=== PATIENT | female | born 1970 | race Caucasian/White ===

== ENCOUNTER 2018-06-26 13:50 | Emergency (ER) | payer OTHER ==
[2018-06-26 14:16] VITALS: RESP 18; TEMP 98.6
[2018-06-26] MEDS ORDERED: IPRATROPIUM-ALBUTEROL 3 ML NEB INHALATION STA (15:03)
[2018-06-26] MEDS ORDERED: IBUPROFEN 600 MG STARTER PACK 4 TAB BTL PO STA (15:03)
[2018-06-26] MEDS ORDERED: ACETAMINOPHEN TAB 500 MG TAB PO STA (15:03)
--- NOTE | 2018-06-26 15:25 | XR ---
EXAMINATION TYPE: XR chest 2V DATE OF EXAM: 06/26/2018 COMPARISON: NONE HISTORY: Cough and congestion TECHNIQUE: Frontal and lateral views of the chest are obtained. FINDINGS: There is no focal air space opacity, pleural effusion, or pneumothorax seen. The cardiac silhouette size is within normal limits. The osseous structures are intact. IMPRESSION: No acute cardiopulmonary process.
--- NOTE | 2018-06-26 15:34 | ED ---
URI HPI - General Chief Complaint: Upper Respiratory Infection Stated Complaint: Congested Time Seen by Provider: 06/26/18 14:45 Source: patient, RN notes reviewed, old records reviewed Mode of arrival: ambulatory Limitations: no limitations - History of Present Illness Initial Comments: Dorothy is a 48-year-old female presents for shortness of one week of cough and congestion. She was a body aches. She states she's been using her nebulizer with albuterol but has had very little relief. Patient states that she's had complaints with back pain and generalized body aches. She states that her symptoms started on Wednesday. She's been laying in bed. She has had some episodes of vomiting. She denies any associated chest pain. Patient reports she did receive her flu vaccine. - Related Data Home Medications Medication Instructions Recorded Confirmed Levothyroxine Sodium [Synthroid] 125 mcg PO DAILY 01/10/16 06/26/18 Albuterol Nebulized [Ventolin 2.5 mg INHALATION Q6H PRN 06/26/18 06/26/18 Nebulized] Cholecalciferol (Vitamin D3) 2,000 unit PO DAILY 06/26/18 06/26/18 [Vitamin D3] Cyanocobalamin [Vitamin B-12] 500 mcg PO DAILY 06/26/18 06/26/18 Tylenol Cold Max Liquid 30 ml PO Q4H PRN 06/26/18 06/26/18 Previous Rx's Medication Instructions Recorded Ipratropium-Albuterol Nebulize 3 ml INHALATION TID #30 neb 06/26/18 [Duoneb 0.5 mg-3 mg/3 ml Soln] Aoaw-Zjnt-Vcj 6.25-5-10Mg/5Ml 5 ml PO Q6H 3 Days #60 ml 06/26/18 [Phenergan VC with Codeine] predniSONE 10 mg PO DAILY #15 tab 06/26/18 Allergies Allergy/AdvReac Type Severity Reaction Status Date / Time latex Allergy RED SKIN Verified 06/26/18 14:24 AND BLISTERS Penicillins Allergy Rash/Hives Verified 06/26/18 14:24 Review of Systems ROS Statement: Those systems with pertinent positive or pertinent negative responses have been documented in the HPI. ROS Other: All systems not noted in ROS Statement are negative. Past Medical History Past Medical History: Osteoarthritis (OA), Thyroid Disorder Additional Past Medical History / Comment(s): KIDNEY STONE History of Any Multi-Drug Resistant Organisms: None Reported Past Surgical History: Breast Surgery, Section, Tubal Ligation Additional Past Surgical History / Comment(s): LUNG BIOPSY Past Anesthesia/Blood Transfusion Reactions: No Reported Reaction Past Psychological History: No Psychological Hx Reported Smoking Status: Former smoker Past Alcohol Use History: None Reported Past Drug Use History: None Reported - Past Family History Mother Family Medical History: No Reported History General Exam - General Exam Comments Initial Comments: 48-year-old female. Alert and oriented. No significant distress. General: Well appearing, well nourished, in no distress. Oriented x 3, normal mood and affect . Ambulating without difficulty. Skin: Good turgor, no rash, unusual bruising or prominent lesions Hair: Normal texture and distribution. HEENT: Head: Normocephalic, atraumatic, no visible or palpable masses, depressions, or scaring. Eyes: Visual acuity intact, conjunctiva clear, sclera non-icteric, EOM intact, PERRL. Ears: EACs clear, TMs translucent & cone of light visualized. hearing intact. Nose: No external lesions, mucosa non-inflamed, septum and turbinates normal Mouth: Mucous membranes moist, no mucosal lesions. Teeth/Gums: No obvious caries or periodontal disease. No gingival inflammation or significant resorption. Pharynx: Mucosa non-inflamed, no tonsillar hypertrophy or exudate Neck: Supple, without lesions, bruits, or adenopathy, thyroid non-enlarged and non-tender Heart: No cardiomegaly or thrills; regular rate and rhythm, no murmur or gallop Lungs: Wheezing. Abdomen: Bowel sounds normal, no tenderness, organomegaly, masses, or hernia Extremities: No amputations or deformities, cyanosis, edema or varicosities, peripheral pulses intact Musculoskeletal: Normal gait and station. No misalignment, asymmetry, crepitation, defects, tenderness, masses, effusions, decreased range of motion, instability, atrophy or abnormal strength or tone in the head, neck, spine, ribs , pelvis or extremities. Neurologic: CN 2-12 normal. Sensation to pain, touch, and proprioception normal. DTRs normal in upper and lower extremities. No pathologic reflexes. Psychiatric: Oriented X3, intact recent and remote memory, judgment and insight , normal mood and affect. Limitations: no limitations Course Vital Signs 06/26/18 06/26/18 06/26/18 14:14 15:33 15:38 Temperature 98.6 F Pulse Rate 71 56 L 58 L Respiratory 18 Rate Blood Pressure 148/83 O2 Sat by Pulse 100 Oximetry Medical Decision Making - Medical Decision Making Junior female family history of asthma presents today with complaints of difficulty breathing, cough congestion and generalized body aches for one week. Patient clinically does appear well. She denies some wheezing was given a DuoNeb treatment. Her chest x-ray was normal. Patient is positive for influenza A. Patient will be discharged with close follow-up with primary care physician. Discharged with Zofran, and treatment steroids nebulizer and cough syrup. - Lab Data Lab Results 06/26/18 Range/Units 15:00 Influenza Type A RNA Detected H (Not Detectd) Influenza Type B (PCR) Not Detected (Not Detectd) - Radiology Data Radiology results: report reviewed Chest x-ray is negative for any acute critical me process. Disposition Clinical Impression: Influenza A Disposition: HOME SELF-CARE Condition: Good Instructions (If sedation given, give patient instructions): Influenza (ED) Additional Instructions: Is advised to rest, return to emergency department if any alarming signs or symptoms occur. Alternate Motrin and Tylenol. Patient to take the medication as prescribed. Prescriptions: Ipratropium-Albuterol Nebulize [Duoneb 0.5 mg-3 mg/3 ml Soln] 3 ml INHALATION TID #30 neb predniSONE 10 mg PO DAILY #15 tab Qauv-Jqwe-Mwz 6.25-5-10Mg/5Ml [Phenergan VC with Codeine] 5 ml PO Q6H 3 Days # 60 ml Is patient prescribed a controlled substance at d/c from ED?: No Referrals: [facility] [Primary Care Provider] - 1-2 days Time of Disposition: 15:44
[2018-06-26 16:12] VITALS: BP 137/92; PULSE 71
== END 2018-06-26 16:12 | disposition home or self-care (01) ==
LOC: EC 13:50
DX: J10.1 Influenza due to other identified influenza virus with other respiratory manifestations (principal); E07.9 Disorder of thyroid, unspecified; Z87.891 Personal history of nicotine dependence; Z88.0 Allergy status to penicillin; Z91.040 Latex allergy status; Z79.899 Other long term (current) drug therapy; Z82.5 Family history of asthma and other chronic lower respiratory diseases
CPT/HCPCS: 71046; 87502; 94640; 99284

== ENCOUNTER 2018-09-17 13:00 | Emergency (ER) | payer OTHER ==
[2018-09-17 13:03] VITALS: TEMP 98.1
[2018-09-17] MEDS ORDERED: SODIUM CHLORIDE 0.9% 1,000 ML IV STA (13:04)
[2018-09-17] MEDS ORDERED: SODIUM CHLORIDE 0.9% 500 ML 500 ML IV STA (13:04)
[2018-09-17] MEDS ORDERED: ONDANSETRON 4 MG/2 ML VIAL IVP STA (13:12)
[2018-09-17] MEDS ORDERED: KETOROLAC 30 MG/ML 1 ML VIAL IVP STA (13:12)
--- NOTE | 2018-09-17 13:44 | ED ---
Abdominal Pain HPI - General Chief Complaint: Abdominal Pain Stated Complaint: lower back pain Time Seen by Provider: 09/17/18 13:04 Source: patient, RN notes reviewed Mode of arrival: ambulatory Limitations: no limitations - History of Present Illness Initial Comments: 48-year-old female presents emergency Department chief complaint of right flank pain. Patient states has been waxing and waning but states his been more consistent recent. She does have a history kidney stones and feels somewhat. Patient denies any diarrhea, constipation, dysuria. Patient did admit that she had a very long period this month though she states she is perimenopausal. Patient denies any chance . She's had prior tubal ligation no other abdominal surgeries denies chest pain or shortness of breath. - Related Data Home Medications Medication Instructions Recorded Confirmed Levothyroxine Sodium [Synthroid] 125 mcg PO DAILY 01/10/16 06/26/18 Albuterol Nebulized [Ventolin 2.5 mg INHALATION Q6H PRN 06/26/18 06/26/18 Nebulized] Cholecalciferol (Vitamin D3) 2,000 unit PO DAILY 06/26/18 06/26/18 [Vitamin D3] Cyanocobalamin [Vitamin B-12] 500 mcg PO DAILY 06/26/18 06/26/18 Tylenol Cold Max Liquid 30 ml PO Q4H PRN 06/26/18 06/26/18 Previous Rx's Medication Instructions Recorded Ipratropium-Albuterol Nebulize 3 ml INHALATION TID #30 neb 06/26/18 [Duoneb 0.5 mg-3 mg/3 ml Soln] Gukq-Cays-Bcu 6.25-5-10Mg/5Ml 5 ml PO Q6H 3 Days #60 ml 06/26/18 [Phenergan VC with Codeine] predniSONE 10 mg PO DAILY #15 tab 06/26/18 Allergies Allergy/AdvReac Type Severity Reaction Status Date / Time latex Allergy RED SKIN Verified 09/17/18 13:03 AND BLISTERS Penicillins Allergy Rash/Hives Verified 09/17/18 13:03 Review of Systems ROS Statement: Those systems with pertinent positive or pertinent negative responses have been documented in the HPI. ROS Other: All systems not noted in ROS Statement are negative. Past Medical History Past Medical History: Osteoarthritis (OA), Thyroid Disorder Additional Past Medical History / Comment(s): KIDNEY STONE History of Any Multi-Drug Resistant Organisms: None Reported Past Surgical History: Breast Surgery, Section, Tubal Ligation Additional Past Surgical History / Comment(s): LUNG BIOPSY Past Anesthesia/Blood Transfusion Reactions: No Reported Reaction Past Psychological History: No Psychological Hx Reported Smoking Status: Former smoker Past Alcohol Use History: None Reported Past Drug Use History: None Reported - Past Family History Mother Family Medical History: No Reported History General Exam Limitations: no limitations General appearance: alert, in no apparent distress Head exam: Present: atraumatic, normocephalic, normal inspection Neck exam: Present: normal inspection. Absent: tenderness, meningismus, lymphadenopathy Respiratory exam: Present: normal lung sounds bilaterally. Absent: respiratory distress, wheezes, rales, rhonchi, stridor Cardiovascular Exam: Present: regular rate, normal rhythm, normal heart sounds. Absent: systolic murmur, diastolic murmur, rubs, gallop, clicks GI/Abdominal exam: Present: soft, normal bowel sounds. Absent: distended, tende rness, guarding, rebound, rigid Back exam: Present: CVA tenderness (L). Absent: CVA tenderness (R) Skin exam: Present: warm, dry, intact, normal color. Absent: rash Course Vital Signs 09/17/18 09/17/18 13:00 14:58 Temperature 98.1 F Pulse Rate 88 80 Respiratory 18 16 Rate Blood Pressure 146/90 136/81 O2 Sat by Pulse 98 99 Oximetry Medical Decision Making - Medical Decision Making 48-year-old female presented for flank pain abdominal pain. Patient CT shows evidence of moderate overall stool burden, possible enteritis versus colitis. Patient states will be discharged advised to take stool softener laxative and return for any worsening symptoms. - Lab Data Result diagrams: 09/17/18 13:54 09/17/18 13:54 Lab Results 09/17/18 09/17/18 09/17/18 Range/Units 13:54 13:54 13:54 WBC 5.9 (3.8-10.6) k/uL RBC 4.46 (3.80-5.40) m/uL Hgb 12.9 (11.4-16.0) gm/dL Hct 39.9 (34.0-46.0) % MCV 89.4 (80.0-100.0) fL MCH 29.0 (25.0-35.0) pg MCHC 32.5 (31.0-37.0) g/dL RDW 14.6 (11.5-15.5) % Plt Count 181 (150-450) k/uL Neutrophils % 63 % Lymphocytes % 29 % Monocytes % 3 % Eosinophils % 2 % Basophils % 0 % Neutrophils # 3.8 (1.3-7.7) k/uL Lymphocytes # 1.7 (1.0-4.8) k/uL Monocytes # 0.2 (0-1.0) k/uL Eosinophils # 0.1 (0-0.7) k/uL Basophils # 0.0 (0-0.2) k/uL Sodium 139 (137-145) mmol/L Potassium 4.3 (3.5-5.1) mmol/L Chloride 104 (98-107) mmol/L Carbon Dioxide 25 (22-30) mmol/L Anion Gap 10 mmol/L BUN 12 (7-17) mg/dL Creatinine 0.71 (0.52-1.04) mg/dL Est GFR (CKD-EPI)AfAm >90 (>60 ml/min/1.73 sqM) Est GFR (CKD-EPI)NonAf >90 (>60 ml/min/1.73 sqM) Glucose 92 (74-99) mg/dL Calcium 9.5 (8.4-10.2) mg/dL Total Bilirubin 0.5 (0.2-1.3) mg/dL AST 25 (14-36) U/L ALT 34 (9-52) U/L Alkaline Phosphatase 76 (38-126) U/L Total Protein 8.1 (6.3-8.2) g/dL Albumin 4.7 (3.5-5.0) g/dL Amylase 200 H (30-110) U/L Lipase 202 (23-300) U/L Urine Color Light Yellow Urine Appearance Clear (Clear) Urine pH 6.5 (5.0-8.0) Ur Specific Francis 1.011 (1.001-1.035) Urine Protein Negative (Negative) Urine Glucose (UA) Negative (Negative) Urine Ketones Negative (Negative) Urine Blood Trace H (Negative) Urine Nitrite Negative (Negative) Urine Bilirubin Negative (Negative) Urine Urobilinogen <2.0 (<2.0) mg/dL Ur Leukocyte Esterase Negative (Negative) Urine RBC 2 (0-5) /hpf Ur Squamous Epith Cells 1 (0-4) /hpf Urine Mucus Rare H (None) /hpf Disposition Clinical Impression: Abdominal pain, Constipation Disposition: HOME SELF-CARE Condition: Stable Instructions (If sedation given, give patient instructions): Abdominal Pain (ED) Additional Instructions: Please return to the Emergency Department if symptoms worsen or any other concerns. Is patient prescribed a controlled substance at d/c from ED?: No Referrals: [facility] [Primary Care Provider] - 1-2 days Time of Disposition: 15:16
--- NOTE | 2018-09-17 13:50 | XR ---
EXAMINATION TYPE: XR KUB DATE OF EXAM: 09/17/2018 CLINICAL DATA: 48-year-old female with abdominal pain, [facility] COMPARISON: 01/17/2016 FINDINGS: Lung bases are clear. No evidence for free intraperitoneal air. A few small bowel air-fluid levels in the left mid abdomen. No abnormal bowel dilatation. Scattered c olonic air is present with mild overall stool. No suspicious calcifications are identified. IMPRESSION: 1. Nonspecific, overall nonobstructive bowel gas pattern. No free air. 2. Some air-fluid levels within nondilated left mid abdominal small bowel loops could be transient or could represent a regional ileus or enteritis.
[2018-09-17 14:04] LABS: Basophils % (A) 0 %; Eosinophils # (A) 0.1 k/uL (0-0.7); Eosinophils % (A) 2 %; HCT 39.9 % (34.0-46.0); HGB 12.9 gm/dL (11.4-16.0); Lymphocytes # (A) 1.7 k/uL (1.0-4.8); Lymphocytes % (A) 29 %; MCHC 32.5 g/dL (31.0-37.0); MCV 89.4 fL (80.0-100.0); Mean Platelet Volume 9.7; Monocytes # (A) 0.2 k/uL (0-1.0); Monocytes % (A) 3 %; Neutrophils # (A) 3.8 k/uL (1.3-7.7); Neutrophils % (A) 63 %; Platelet Count 181 k/uL (150-450); RBC 4.46 m/uL (3.80-5.40); RDW 14.6 % (11.5-15.5); WBC 5.9 k/uL (3.8-10.6)
[2018-09-17 14:11] LABS: Appearance,Urine Clear (Clear); Bilirubin,Urine Negative (Negative); Blood,Urine Trace (Negative); Color,Urine Light Yellow; Glucose,Urine (UA) Negative (Negative); Ketones,Urine Negative (Negative); Leukocyte Esterase,Urine Negative (Negative); Mucus,Urine Rare /hpf; Nitrite,Urine Negative (Negative); PH, Urine 6.5 (5.0-8.0); Protein,Urine Negative (Negative); RBC,Urine 2 /hpf (0-5); Specific Gravity,Urine 1.011 (1.001-1.035); Squamous Epithelial Cell,Urine 1 /hpf (0-4); Urobilinogen,Urine <2.0 mg/dL (<2.0)
[2018-09-17 14:13] LABS: ALT 34 U/L (9-52); AST 25 U/L (14-36); Albumin 4.7 g/dL (3.5-5.0); Alkaline Phosphatase 76 U/L (38-126); Amylase 200 U/L (30-110); Anion Gap 10 mmol/L; Blood Urea Nitrogen 12 mg/dL (7-17); Calcium 9.5 mg/dL (8.4-10.2); Carbon Dioxide 25 mmol/L (22-30); Chloride 104 mmol/L (98-107); Glucose 92 mg/dL (74-99); Lipase 202 U/L (23-300); Potassium 4.3 mmol/L (3.5-5.1); Sodium 139 mmol/L (137-145); Total Bilirubin 0.5 mg/dL (0.2-1.3); Total Protein 8.1 g/dL (6.3-8.2)
[2018-09-17] MEDS ORDERED: MORPHINE SULFATE 2 MG/ML SYRINGE IVP ONE (14:28)
--- NOTE | 2018-09-17 15:13 | CT ---
EXAMINATION TYPE: CT abdomen pelvis w con DATE OF EXAM: 09/17/2018 COMPARISON: NONE HISTORY: 48-year-old female Right sided abdominal pain. TECHNIQUE: Contiguous axial scanning of the abdomen and pelvis following administration of 100 ml Iso josr 300 IV contrast. Delayed images through the kidneys and coronal/sagittal reconstructions perform ed. CT DLP: 820.8 mGycm Automated exposure control for dose reduction was used. FINDINGS: Heart normal size without pericardial effusion. Some strandy dependent atelectasis. No pleural effusi on. Prominent ingested debris distending the stomach. No focal liver lesion or biliary ductal dilatation. Portal venous system is patent. Gallbladder, adrenal glands, spleen, and pancreas appear within normal limits. 2.6 cm cyst upper pole left kidney. Prominent fluid filled small bowel loops in the mid to lower abdomen. No abnormal bowel dilatation. T here may be some mild wall thickening of the right lower quadrant small bowel, axial image 52. Normal appendix. Mild overall stone burden. Descending and sigmoid colonic diverticulosis. No pericolonic inflammatory change. No mesenteric or retroperitoneal lymphadenopathy. Uterus and left ovary are visualized. Right ovary not clearly delineated. No abnormal fluid collectio n in the pelvis or pelvic lymphadenopathy. Bones: No osseous destructive process. 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 If any chronic hip pain, cons ider outpatient orthopedic referral. IMPRESSION: 1. SOME PROMINENT FLUID-FILLED SMALL BOWEL LOOPS IN THE MID AND LOWER ABDOMEN AND POSSIBLE MILD WALL THICKENING OF RIGHT LOWER QUADRANT SMALL BOWEL LOOPS. CORRELATE FOR NONSPECIFIC ENTERITIS. 2. NORMAL APPENDIX. 3. DESCENDING AND SIGMOID COLONIC DIVERTICULOSIS. NO EVIDENCE FOR ACUTE DIVERTICULITIS. 4. BONY CHANGES AT THE HIPS MENTIONED ABOVE.
[2018-09-17 15:43] VITALS: BP 149/90; PULSE 58; RESP 18
== END 2018-09-17 15:37 | disposition home or self-care (01) ==
LOC: EC 13:00
DX: K59.00 Constipation, unspecified (principal); Z78.0 Asymptomatic menopausal state; E07.9 Disorder of thyroid, unspecified; M19.90 Unspecified osteoarthritis, unspecified site; Z87.891 Personal history of nicotine dependence; Z88.0 Allergy status to penicillin; Z91.040 Latex allergy status; Z79.890 Hormone replacement therapy; Z79.891 Long term (current) use of opiate analgesic; Z98.51 Tubal ligation status; Z87.442 Personal history of urinary calculi
CPT/HCPCS: 36415; 80053; 82150; 83690; 85025; 81001; 74018; 74177; 99284; 96374; 96375 ×2; 96361 ×2; J2405; J1885; J2270; Q9967

== ENCOUNTER 2018-10-02 12:55 | Emergency (ER) | payer OTHER ==
[2018-10-02] MEDS ORDERED: KETOROLAC 30 MG/ML 1 ML VIAL IVP STA (13:26)
[2018-10-02] MEDS ORDERED: SODIUM CHLORIDE 0.9% 1,000 ML IV ONE (13:26)
--- NOTE | 2018-10-02 13:29 | ED ---
Female Urogenital HPI - General Chief complaint: Vaginal Bleeding Stated complaint: Vaginal Bleeding Time Seen by Provider: 10/02/18 13:06 Source: patient, RN notes reviewed, old records reviewed Mode of arrival: wheelchair Limitations: no limitations - History of Present Illness Initial comments: Patient is a 48-year-old female presents emergency department today with concerns for abnormal vaginal bleeding. Patient states that for the past 2 months she's been having heavy vaginal bleeding. She states last week it seemed to lighten up. Today when she was getting ready for nondenominational she started noticed worsening heavy bleeding. Patient states that she was at nondenominational she started up and felt like an "her blood faucet turned on". Patient states that she had some significant clots and bright red blood and filter pad in 5 minutes. Patient states she is not on blood thinners. Patient states she does have an appointment with a consulting services project manager at the end of month. Patient reports that she's had no fevers chills or nausea and vomiting. She states that she's been having significant cramping pain for the past day. - Related Data Home Medications Medication Instructions Recorded Confirmed Levothyroxine Sodium [Synthroid] 125 mcg PO DAILY 01/10/16 06/26/18 Albuterol Nebulized [Ventolin 2.5 mg INHALATION Q6H PRN 06/26/18 06/26/18 Nebulized] Cholecalciferol (Vitamin D3) 2,000 unit PO DAILY 06/26/18 06/26/18 [Vitamin D3] Cyanocobalamin [Vitamin B-12] 500 mcg PO DAILY 06/26/18 06/26/18 Tylenol Cold Max Liquid 30 ml PO Q4H PRN 06/26/18 06/26/18 Previous Rx's Medication Instructions Recorded Ipratropium-Albuterol Nebulize 3 ml INHALATION TID #30 neb 06/26/18 [Duoneb 0.5 mg-3 mg/3 ml Soln] Fhkj-Bwow-Asi 6.25-5-10Mg/5Ml 5 ml PO Q6H 3 Days #60 ml 06/26/18 [Phenergan VC with Codeine] predniSONE 10 mg PO DAILY #15 tab 06/26/18 Ferrous Sulfate [Feosol] 325 mg PO BID #40 tab 10/02/18 Allergies Allergy/AdvReac Type Severity Reaction Status Date / Time latex Allergy RED SKIN Verified 10/02/18 13:03 AND BLISTERS Penicillins Allergy Rash/Hives Verified 10/02/18 13:03 Review of Systems ROS Statement: Those systems with pertinent positive or pertinent negative responses have been documented in the HPI. ROS Other: All systems not noted in ROS Statement are negative. Past Medical History Past Medical History: Osteoarthritis (OA), Thyroid Disorder Additional Past Medical History / Comment(s): KIDNEY STONE History of Any Multi-Drug Resistant Organisms: None Reported Past Surgical History: Breast Surgery, Section, Tubal Ligation Additional Past Surgical History / Comment(s): LUNG BIOPSY Past Anesthesia/Blood Transfusion Reactions: No Reported Reaction Past Psychological History: No Psychological Hx Reported Smoking Status: Former smoker Past Alcohol Use History: None Reported Past Drug Use History: None Reported - Past Family History Mother Family Medical History: No Reported History General Exam - General Exam Comments Initial Comments: 48-year-old female. Alert and oriented 3. No significant distress. Limitations: no limitations Head exam: Present: atraumatic, normocephalic, normal inspection Eye exam: Present: normal appearance, PERRL, EOMI. Absent: scleral icterus, conjunctival injection, periorbital swelling ENT exam: Present: normal exam, mucous membranes moist Neck exam: Present: normal inspection. Absent: tenderness, meningismus, lymphadenopathy Respiratory exam: Present: normal lung sounds bilaterally. Absent: respiratory distress, wheezes, rales, rhonchi, stridor Cardiovascular Exam: Present: regular rate, normal rhythm, normal heart sounds. Absent: systolic murmur, diastolic murmur, rubs, gallop, clicks GI/Abdominal exam: Present: soft, normal bowel sounds. Absent: distended, tenderness, guarding, rebound, rigid External exam: Present: normal external exam Speculum exam: Present: vaginal bleeding (Minimal clotting noted on pelvic exam, bright red blood noted. No adnexal or cervical motion tenderness.). Absent: normal speculum exam By manual exam: Present: normal by manual exam. Absent: cervical motion tenderness, adnexal mass Extremities exam: Present: normal inspection, full ROM, normal capillary refill. Absent: tenderness, pedal edema, joint swelling, calf tenderness Back exam: Present: normal inspection Neurological exam: Present: alert Skin exam: Present: warm, dry, intact, normal color. Absent: rash Course Vital Signs 0510/02/18 10/02/18 12:58 13:57 14:53 Temperature 98.8 F Pulse Rate 89 69 66 Respiratory 18 18 18 Rate Blood Pressure 171/104 160/101 159/97 O2 Sat by Pulse 99 100 98 Oximetry Medical Decision Making - Medical Decision Making Patient is a 48-year-old female presents emergency department today for abnormal vaginal bleeding. She does have some bleeding noted on pelvic exam, no significant clots. No cervical or adnexal tenderness. Patient's transvaginal ultrasound shows normal uterus. No fibroids. Unable to visualize ovaries ihsan aterally. Patient is hemoglobin is stable in that she's had 2 months of bleeding. I discussed starting the Patient on iron. Discussed that she needs to follow-up with her primary care doctor. Now the Patient on hormones and this could be best done by her GLYCERIN SUPERVISOR. She has an appointment at the enema. All questions answered return parameters were discussed. - Lab Data Result diagrams: 10/02/18 13:35 10/02/18 13:35 Lab Results 10/02/18 10/02/18 10/02/18 Range/Units 13:35 13:35 13:35 WBC 5.2 (3.8-10.6) k/uL RBC 4.21 (3.80-5.40) m/uL Hgb 12.4 (11.4-16.0) gm/dL Hct 37.7 (34.0-46.0) % MCV 89.4 (80.0-100.0) fL MCH 29.4 (25.0-35.0) pg MCHC 32.9 (31.0-37.0) g/dL RDW 13.8 (11.5-15.5) % Plt Count 140 L (150-450) k/uL Neutrophils % 66 % Lymphocytes % 26 % Monocytes % 4 % Eosinophils % 2 % Basophils % 0 % Neutrophils # 3.4 (1.3-7.7) k/uL Lymphocytes # 1.3 (1.0-4.8) k/uL Monocytes # 0.2 (0-1.0) k/uL Eosinophils # 0.1 (0-0.7) k/uL Basophils # 0.0 (0-0.2) k/uL PT 9.8 (9.0-12.0) sec INR 0.9 (<1.2) APTT 25.5 (22.0-30.0) sec Sodium 141 (137-145) mmol/L Potassium 4.1 (3.5-5.1) mmol/L Chloride 104 (98-107) mmol/L Carbon Dioxide 28 (22-30) mmol/L Anion Gap 9 mmol/L BUN 12 (7-17) mg/dL Creatinine 0.70 (0.52-1.04) mg/dL Est GFR (CKD-EPI)AfAm >90 (>60 ml/min/1.73 sqM) Est GFR (CKD-EPI)NonAf >90 (>60 ml/min/1.73 sqM) Glucose 82 (74-99) mg/dL Calcium 9.5 (8.4-10.2) mg/dL Total Bilirubin 0.6 (0.2-1.3) mg/dL AST 26 (14-36) U/L ALT 32 (9-52) U/L Alkaline Phosphatase 91 (38-126) U/L Total Protein 8.3 H (6.3-8.2) g/dL Albumin 4.8 (3.5-5.0) g/dL Urine Color Urine Appearance (Clear) Urine pH (5.0-8.0) Ur Specific Wall (1.001-1.035) Urine Protein (Negative) Urine Glucose (UA) (Negative) Urine Ketones (Negative) Urine Blood (Negative) Urine Nitrite (Negative) Urine Bilirubin (Negative) Urine Urobilinogen (<2.0) mg/dL Ur Leukocyte Esterase (Negative) Urine RBC (0-5) /hpf Urine WBC (0-5) /hpf Ur Squamous Epith Cells (0-4) /hpf Amorphous Sediment (None) /hpf Urine Mucus (None) /hpf Urine HCG, Qual (Not Detectd) Trichomonas Ag (Rapid) (Negative) Blood Type Blood Type Recheck Antibody Screen Spec Expiration Date 10/02/18 10/02/18 10/02/18 Range/Units 13:35 13:35 13:35 WBC (3.8-10.6) k/uL RBC (3.80-5.40) m/uL Hgb (11.4-16.0) gm/dL Hct (34.0-46.0) % MCV (80.0-100.0) fL MCH (25.0-35.0) pg MCHC (31.0-37.0) g/dL RDW (11.5-15.5) % Plt Count (150-450) k/uL Neutrophils % % Lymphocytes % % Monocytes % % Eosinophils % % Basophils % % Neutrophils # (1.3-7.7) k/uL Lymphocytes # (1.0-4.8) k/uL Monocytes # (0-1.0) k/uL Eosinophils # (0-0.7) k/uL Basophils # (0-0.2) k/uL PT (9.0-12.0) sec INR (<1.2) APTT (22.0-30.0) sec Sodium (137-145) mmol/L Potassium (3.5-5.1) mmol/L Chloride (98-107) mmol/L Carbon Dioxide (22-30) mmol/L Anion Gap mmol/L BUN (7-17) mg/dL Creatinine (0.52-1.04) mg/dL Est GFR (CKD-EPI)AfAm (>60 ml/min/1.73 sqM) Est GFR (CKD-EPI)NonAf (>60 ml/min/1.73 sqM) Glucose (74-99) mg/dL Calcium (8.4-10.2) mg/dL Total Bilirubin (0.2-1.3) mg/dL AST (14-36) U/L ALT (9-52) U/L Alkaline Phosphatase (38-126) U/L Total Protein (6.3-8.2) g/dL Albumin (3.5-5.0) g/dL Urine Color Urine Appearance (Clear) Urine pH (5.0-8.0) Ur Specific [place] (1.001-1.035) Urine Protein (Negative) Urine Glucose (UA) (Negative) Urine Ketones (Negative) Urine Blood (Negative) Urine Nitrite (Negative) Urine Bilirubin (Negative) Urine Urobilinogen (<2.0) mg/dL Ur Leukocyte Esterase (Negative) Urine RBC (0-5) /hpf Urine WBC (0-5) /hpf Ur Squamous Epith Cells (0-4) /hpf Amorphous Sediment (None) /hpf Urine Mucus (None) /hpf Urine HCG, Qual Not Detected (Not Detectd) Trichomonas Ag (Rapid) Negative (Negative) Blood Type O Positive Blood Type Recheck CABO Indicated Antibody Screen NEGATIVE Spec Expiration Date 10/05/2018233410/02/18 Range/Units 13:35 WBC (3.8-10.6) k/uL RBC (3.80-5.40) m/uL Hgb (11.4-16.0) gm/dL Hct (34.0-46.0) % MCV (80.0-100.0) fL MCH (25.0-35.0) pg MCHC (31.0-37.0) g/dL RDW (11.5-15.5) % Plt Count (150-450) k/uL Neutrophils % % Lymphocytes % % Monocytes % % Eosinophils % % Basophils % % Neutrophils # (1.3-7.7) k/uL Lymphocytes # (1.0-4.8) k/uL Monocytes # (0-1.0) k/uL Eosinophils # (0-0.7) k/uL Basophils # (0-0.2) k/uL PT (9.0-12.0) sec INR (<1.2) APTT (22.0-30.0) sec Sodium (137-145) mmol/L Potassium (3.5-5.1) mmol/L Chloride (98-107) mmol/L Carbon Dioxide (22-30) mmol/L Anion Gap mmol/L BUN (7-17) mg/dL Creatinine (0.52-1.04) mg/dL Est GFR (CKD-EPI)AfAm (>60 ml/min/1.73 sqM) Est GFR (CKD-EPI)NonAf (>60 ml/min/1.73 sqM) Glucose (74-99) mg/dL Calcium (8.4-10.2) mg/dL Total Bilirubin (0.2-1.3) mg/dL AST (14-36) U/L ALT (9-52) U/L Alkaline Phosphatase (38-126) U/L Total Protein (6.3-8.2) g/dL Albumin (3.5-5.0) g/dL Urine Color Light Yellow Urine Appearance Clear (Clear) Urine pH 6.5 (5.0-8.0) Ur Specific [place] 1.019 (1.001-1.035) Urine Protein Trace H (Negative) Urine Glucose (UA) Negative (Negative) Urine Ketones Negative (Negative) Urine Blood Moderate H (Negative) Urine Nitrite Negative (Negative) Urine Bilirubin Negative (Negative) Urine Urobilinogen <2.0 (<2.0) mg/dL Ur Leukocyte Esterase Negative (Negative) Urine RBC 81 H (0-5) /hpf Urine WBC 1 (0-5) /hpf Ur Squamous Epith Cells 2 (0-4) /hpf Amorphous Sediment Rare H (None) /hpf Urine Mucus Rare H (None) /hpf Urine HCG, Qual (Not Detectd) Trichomonas Ag (Rapid) (Negative) Blood Type Blood Type Recheck Antibody Screen Spec Expiration Date - Radiology Data Radiology results: report reviewed No endometrial thickening seen. No adnexal mass or free fluid. Unable to visualize the ovaries on the transvaginal and transabdominal attempts. Disposition Clinical Impression: Abnormal uterine bleeding Disposition: HOME SELF-CARE Condition: Good Instructions (If sedation given, give patient instructions): Dysfunctional Uterine Bleeding (ED) Additional Instructions: Patient advised to take iron supplements as directed. Have close follow-up with primary care physician. Patient should return to the emergency department if any alarming signs or symptoms occur. Follow-up with your GLYCERIN SUPERVISOR as directed. Prescriptions: Ferrous Sulfate [Feosol] 325 mg PO BID #40 tab Is patient prescribed a controlled substance at d/c from ED?: No Referrals: [facility] [Primary Care Provider] - 1-2 days Time of Disposition: 15:03
[2018-10-02 13:50] LABS: Basophils % (A) 0 %; Eosinophils # (A) 0.1 k/uL (0-0.7); Eosinophils % (A) 2 %; HCT 37.7 % (34.0-46.0); HGB 12.4 gm/dL (11.4-16.0); Lymphocytes # (A) 1.3 k/uL (1.0-4.8); Lymphocytes % (A) 26 %; MCH 29.4 pg (25.0-35.0); MCHC 32.9 g/dL (31.0-37.0); MCV 89.4 fL (80.0-100.0); Mean Platelet Volume 9.4; Monocytes # (A) 0.2 k/uL (0-1.0); Monocytes % (A) 4 %; Neutrophils # (A) 3.4 k/uL (1.3-7.7); Neutrophils % (A) 66 %; Platelet Count 140 k/uL (150-450); RBC 4.21 m/uL (3.80-5.40); RDW 13.8 % (11.5-15.5); WBC 5.2 k/uL (3.8-10.6)
[2018-10-02 13:58] LABS: ALT 32 U/L (9-52); AST 26 U/L (14-36); Albumin 4.8 g/dL (3.5-5.0); Alkaline Phosphatase 91 U/L (38-126); Anion Gap 9 mmol/L; Blood Urea Nitrogen 12 mg/dL (7-17); Calcium 9.5 mg/dL (8.4-10.2); Carbon Dioxide 28 mmol/L (22-30); Chloride 104 mmol/L (98-107); Glucose 82 mg/dL (74-99); Potassium 4.1 mmol/L (3.5-5.1); Sodium 141 mmol/L (137-145); Total Bilirubin 0.6 mg/dL (0.2-1.3); Total Protein 8.3 g/dL (6.3-8.2)
[2018-10-02 14:05] LABS: INR 0.9 (<1.2); Partial Thromboplastin Time 25.5 sec (22.0-30.0); Prothrombin Time 9.8 sec (9.0-12.0)
[2018-10-02 14:22] LABS: Amorphous Sediment,Urine Rare /hpf; Appearance,Urine Clear (Clear); Bilirubin,Urine Negative (Negative); Blood,Urine Moderate (Negative); Color,Urine Light Yellow; Glucose,Urine (UA) Negative (Negative); Ketones,Urine Negative (Negative); Leukocyte Esterase,Urine Negative (Negative); Mucus,Urine Rare /hpf; Nitrite,Urine Negative (Negative); PH, Urine 6.5 (5.0-8.0); Protein,Urine Trace (Negative); RBC,Urine 81 /hpf (0-5); Specific Gravity,Urine 1.019 (1.001-1.035); Squamous Epithelial Cell,Urine 2 /hpf (0-4); Urobilinogen,Urine <2.0 mg/dL (<2.0); WBC,Urine 1 /hpf (0-5)
--- NOTE | 2018-10-02 14:52 | US ---
EXAMINATION TYPE: US Transvaginal DATE OF EXAM: 10/02/2018 COMPARISON: CT CLINICAL HISTORY: Pain. Pt states abnormal, heavy vaginal bleeding x 2 months TECHNIQUE: Transvaginal (TV) and Transabdominal (TA) . Transabdominal sonographic images of the pelvis were acquired. Transvaginal sonographic images were medically necessary to better assess the following anatomy: Endo and ovaries EXAM MEASUREMENTS: Uterus: 9.8 x 4.5 x 5.4 cm Endometrial Stripe: 0.7 cm Unable to visualize ovaries on TV and TA attempts 1. Uterus: Anteverted Heterogeneous, Nabothian cyst in cervix 2. Endometrium: wnl 3. Right Ovary: Unable to visualize 4. Left Ovary: Unable to visualize 5. Bilateral Adnexa: wnl 6. Posterior cul-de-sac: wnl IMPRESSION: No endometrial thickening seen. No adnexal mass or free fluid. MTDD
[2018-10-02] MEDS ORDERED: traMADol 50 MG STARTER PACK 3 TAB BTL PO STA (15:18)
[2018-10-02 15:27] VITALS: BP 153/103; PULSE 72; RESP 14
[2018-10-02 15:46] VITALS: TEMP 98.2
[2018-10-04 12:43] LABS: N. gonorrhoeae,PCR Negative (Neg,Equiv); Neisseria Source Vagina
[2018-10-04 12:50] LABS: C. trachomatis,PCR Negative (Neg,Equiv); Chlamydia trachomatis Source Vagina
== END 2018-10-02 15:51 | disposition home or self-care (01) ==
LOC: EC 12:55
DX: N93.9 Abnormal uterine and vaginal bleeding, unspecified (principal); E07.9 Disorder of thyroid, unspecified; Z87.891 Personal history of nicotine dependence; Z79.890 Hormone replacement therapy; Z91.040 Latex allergy status; Z88.0 Allergy status to penicillin
CPT/HCPCS: 36415; 86900; 86901; 80053; 85025; 85610; 85730; 86850; 81001; 81025; 87808; 87491; 87591; 87070; 87205; 76856; 76830; 99285; 96374; 96361; J1885

== ENCOUNTER 2018-10-04 06:12 | Emergency (ER) | payer OTHER ==
[2018-10-04 06:32] VITALS: RESP 16
[2018-10-04 06:50] LABS: Amorphous Sediment,Urine Rare /hpf; Appearance,Urine Clear (Clear); Bilirubin,Urine Negative (Negative); Blood,Urine Moderate (Negative); Color,Urine Yellow; Glucose,Urine (UA) Negative (Negative); Ketones,Urine Negative (Negative); Leukocyte Esterase,Urine Negative (Negative); Mucus,Urine Occasional /hpf; Nitrite,Urine Negative (Negative); Protein,Urine Trace (Negative); RBC,Urine 3 /hpf (0-5); Specific Gravity,Urine 1.026 (1.001-1.035); Squamous Epithelial Cell,Urine 2 /hpf (0-4); Urobilinogen,Urine <2.0 mg/dL (<2.0); WBC,Urine 1 /hpf (0-5)
[2018-10-04 07:03] LABS: Basophils % (A) 0 %; Eosinophils # (A) 0.1 k/uL (0-0.7); Eosinophils % (A) 2 %; HCT 36.2 % (34.0-46.0); HGB 11.6 gm/dL (11.4-16.0); Lymphocytes # (A) 0.9 k/uL (1.0-4.8); Lymphocytes % (A) 19 %; MCH 29.2 pg (25.0-35.0); MCHC 32.1 g/dL (31.0-37.0); Mean Platelet Volume 9.6; Monocytes # (A) 0.2 k/uL (0-1.0); Monocytes % (A) 5 %; Neutrophils # (A) 3.4 k/uL (1.3-7.7); Neutrophils % (A) 71 %; Platelet Count 143 k/uL (150-450); RBC 3.98 m/uL (3.80-5.40); RDW 13.8 % (11.5-15.5); WBC 4.8 k/uL (3.8-10.6)
[2018-10-04 07:11] LABS: ALT 36 U/L (9-52); AST 27 U/L (14-36); Albumin 4.3 g/dL (3.5-5.0); Alkaline Phosphatase 70 U/L (38-126); Amylase 148 U/L (30-110); Anion Gap 8 mmol/L; Blood Urea Nitrogen 15 mg/dL (7-17); Carbon Dioxide 23 mmol/L (22-30); Chloride 111 mmol/L (98-107); Glucose 97 mg/dL (74-99); Lipase 128 U/L (23-300); Potassium 4.4 mmol/L (3.5-5.1); Sodium 142 mmol/L (137-145); Total Bilirubin 0.4 mg/dL (0.2-1.3); Total Protein 7.5 g/dL (6.3-8.2)
[2018-10-04] MEDS ORDERED: DICYCLOMINE 10 MG/ML 2 ML AMP IM STA (07:51)
[2018-10-04] MEDS ORDERED: ONDANSETRON 4 MG/2 ML VIAL IVP STA (07:51)
[2018-10-04] MEDS ORDERED: FAMOTIDINE 20 MG/2 ML VIAL IV STA (07:51)
--- NOTE | 2018-10-04 07:54 | ED ---
General Adult HPI - General Chief complaint: Abdominal Pain Stated complaint: Abd pain Time Seen by Provider: 10/04/18 07:04 Source: patient, RN notes reviewed Mode of arrival: ambulatory Limitations: no limitations - History of Present Illness Initial comments: Patient is a pleasant 48-year-old female presenting to the emergency Department with complaints of abdominal discomfort. Onset of symptoms was yesterday. Discomfort has been waxing and waning. Discomfort was worse after eating a salad last night. Discomfort is in the epigastric region. Patient does have associated nausea and decreased appetite. No vomiting. No diarrhea. Patient has less bowel movements than other people normally however no recent change for her. No fevers. Patient did have some discomfort several weeks ago however that was more on her flank when she was seen in the emergency department at that point. - Related Data Home Medications Medication Instructions Recorded Confirmed Levothyroxine Sodium [Synthroid] 125 mcg PO DAILY 01/10/16 10/04/18 Cholecalciferol [Vitamin D3 (25 5,000 unit PO DAILY 10/04/18 10/04/18 Mcg = 1000 Iu)] Previous Rx's Medication Instructions Recorded Dicyclomine [Bentyl] 20 mg PO QID #20 tablet 10/04/18 Allergies Allergy/AdvReac Type Severity Reaction Status Date / Time latex Allergy RED SKIN Verified 10/04/18 08:27 AND BLISTERS Penicillins Allergy Rash/Hives Verified 10/04/18 08:27 Review of Systems ROS Statement: Those systems with pertinent positive or pertinent negative responses have been documented in the HPI. ROS Other: All systems not noted in ROS Statement are negative. Constitutional: Denies: fever Eyes: Denies: eye pain ENT: Denies: ear pain Respiratory: Denies: cough Cardiovascular: Denies: chest pain Endocrine: Denies: fatigue Gastrointestinal: Reports: abdominal pain, nausea Genitourinary: Denies: dysuria Musculoskeletal: Denies: back pain Skin: Denies: rash Neurological: Denies: weakness Past Medical History Past Medical History: Osteoarthritis (OA), Thyroid Disorder Additional Past Medical History / Comment(s): KIDNEY STONE, History of Any Multi-Drug Resistant Organisms: None Reported Past Surgical History: Breast Surgery, Section, Tubal Ligation Additional Past Surgical History / Comment(s): LUNG BIOPSY, Past Anesthesia/Blood Transfusion Reactions: No Reported Reaction Past Psychological History: No Psychological Hx Reported Smoking Status: Former smoker Past Alcohol Use History: None Reported Past Drug Use History: None Reported - Past Family History Mother Family Medical History: No Reported History General Exam Limitations: no limitations General appearance: alert, in no apparent distress Head exam: Present: atraumatic Eye exam: Present: normal appearance, PERRL ENT exam: Present: normal oropharynx Neck exam: Present: normal inspection Respiratory exam: Present: normal lung sounds bilaterally Cardiovascular Exam: Present: regular rate, normal rhythm Expanded Peripheral pulses: 2+: Dorsalis Pedis (R), Dorsalis Pedis (L) GI/Abdominal exam: Present: soft, tenderness (Mild tenderness right upper quadrant and epigastric region), normal bowel sounds. Absent: distended, guarding, rebound, rigid, pulsatile mass Extremities exam: Present: normal inspection Back exam: Absent: CVA tenderness (R) Neurological exam: Present: alert Psychiatric exam: Present: normal affect, normal mood Skin exam: Present: normal color Course Vital Signs 10/04/18 10/04/18 06:26 12:00 Temperature 98.3 F 97.7 F Pulse Rate 76 63 Respiratory 16 16 Rate Blood Pressure 127/79 115/72 O2 Sat by Pulse 98 100 Oximetry - Reevaluation(s) Reevaluation #1: 10/04/18 09:21 Patient reevaluated without significant change in symptoms. Abdominal exam unchanged. Patient is receptive to computed tomography scan. 10/04/18 12:28 Patient again reevaluated and resting comfortably in bed. Patient and family updated on results and need for follow-up. Medical Decision Making - Lab Data Result diagrams: 10/04/18 06:48 10/04/18 06:48 Lab Results 10/04/18 10/04/18 10/04/18 Range/Units 06:33 06:48 06:48 WBC 4.8 (3.8-10.6) k/uL RBC 3.98 (3.80-5.40) m/uL Hgb 11.6 (11.4-16.0) gm/dL Hct 36.2 (34.0-46.0) % MCV 91.0 (80.0-100.0) fL MCH 29.2 (25.0-35.0) pg MCHC 32.1 (31.0-37.0) g/dL RDW 13.8 (11.5-15.5) % Plt Count 143 L (150-450) k/uL Neutrophils % 71 % Lymphocytes % 19 % Monocytes % 5 % Eosinophils % 2 % Basophils % 0 % Neutrophils # 3.4 (1.3-7.7) k/uL Lymphocytes # 0.9 L (1.0-4.8) k/uL Monocytes # 0.2 (0-1.0) k/uL Eosinophils # 0.1 (0-0.7) k/uL Basophils # 0.0 (0-0.2) k/uL Sodium 142 (137-145) mmol/L Potassium 4.4 (3.5-5.1) mmol/L Chloride 111 H (98-107) mmol/L Carbon Dioxide 23 (22-30) mmol/L Anion Gap 8 mmol/L BUN 15 (7-17) mg/dL Creatinine 0.71 (0.52-1.04) mg/dL Est GFR (CKD-EPI)AfAm >90 (>60 ml/min/1.73 sqM) Est GFR (CKD-EPI)NonAf >90 (>60 ml/min/1.73 sqM) Glucose 97 (74-99) mg/dL Calcium 9.0 (8.4-10.2) mg/dL Total Bilirubin 0.4 (0.2-1.3) mg/dL AST 27 (14-36) U/L ALT 36 (9-52) U/L Alkaline Phosphatase 70 (38-126) U/L Total Protein 7.5 (6.3-8.2) g/dL Albumin 4.3 (3.5-5.0) g/dL Amylase 148 H (30-110) U/L Lipase 128 (23-300) U/L Urine Color Yellow Urine Appearance Clear (Clear) Urine pH 7.0 (5.0-8.0) Ur Specific [place] 1.026 (1.001-1.035) Urine Protein Trace H (Negative) Urine Glucose (UA) Negative (Negative) Urine Ketones Negative (Negative) Urine Blood Moderate H (Negative) Urine Nitrite Negative (Negative) Urine Bilirubin Negative (Negative) Urine Urobilinogen <2.0 (<2.0) mg/dL Ur Leukocyte Esterase Negative (Negative) Urine RBC 3 (0-5) /hpf Urine WBC 1 (0-5) /hpf Ur Squamous Epith Cells 2 (0-4) /hpf Amorphous Sediment Rare H (None) /hpf Urine Mucus Occasional H (None) /hpf - Radiology Data Radiology results: report reviewed (Ultrasound reveals no acute process. The scan of the abdomen and pelvis shows fluid-filled small bowel loops, correlate for enteritis. Incidental soft tissue nodule in. Coccygeal region, recommend follow-up CT.), image reviewed (X-ray shows mild to moderate stool reported. No obstruction.) Disposition Clinical Impression: Abdominal pain Disposition: HOME SELF-CARE Condition: Stable Instructions (If sedation given, give patient instructions): Abdominal Pain (ED) Additional Instructions: Please follow-up with primary care physician in the next 2 for recheck. Symptoms continue consider GI evaluation. He will need to have repeat computed tomography scan done within the next 6 months to evaluate nodule. Return for fevers, increased pain, worsening or changing symptoms or other concerns. Prescriptions: Dicyclomine [Bentyl] 20 mg PO QID #20 tablet Is patient prescribed a controlled substance at d/c from ED?: No Referrals: [facility] [Primary Care Provider] - 1-2 days Roxi Sanderson MD [STAFF PHYSICIAN] - 1-2 days Time of Disposition: 12:29
--- NOTE | 2018-10-04 08:17 | XR ---
EXAMINATION TYPE: XR KUB DATE OF EXAM: 10/04/2018 CLINICAL DATA: 48-year-old female with abdominal pain, H COMPARISON: 09/17/2018 FINDINGS: Lung bases are clear. No evidence for free intraperitoneal air. No dilated small bowel or air-fluid levels. Scattered air and stool seen throughout the colon extendi ng distally into the rectum. [id number] stool burden. No suspicious calcifications identified. IMPRESSION: Mild to moderate stool burden. No evidence of bowel obstruction or free intraperitoneal air.
--- NOTE | 2018-10-04 08:56 | US ---
EXAMINATION TYPE: US gallbladder DATE OF EXAM: 10/04/2018 COMPARISON: NONE CLINICAL HISTORY: 48-year-old female Pain. Abdominal pain and nausea for 3 days TECHNIQUE: Multiple sonographic images of the right upper quadrant were obtained. FINDINGS: EXAM MEASUREMENTS: Liver Length: 13.7 cm Gallbladder Wall: 0.2 cm CBD: 0.3 cm Right Kidney: 10.9 x 4.4 x 3.9 cm [employer] NOTES: *Technical limitations due to large amount of overlying bowel content Pancreas: Tail obscured by overlying bowel gas Liver: appears wnl Gallbladder: no evidence of stones Evidence for sonographic Andrew's sign: no CBD: appears wnl Right Kidney: no evidence of hydronephrosis IMPRESSION: Suboptimal visualization of the pancreatic tail. Otherwise, unremarkable sonographic examination of t he right upper quadrant.
[2018-10-04] MEDS ORDERED: HYDROmorphone 1 MG/ML 1 ML SYRINGE IVP STA (09:21)
--- NOTE | 2018-10-04 10:15 | CT ---
EXAMINATION TYPE: CT abdomen pelvis w con DATE OF EXAM: 10/04/2018 COMPARISON: 09/17/2018 HISTORY: 48-year-old female with mid Abdominal pain TECHNIQUE: Contiguous axial scanning of the abdomen and pelvis following administration of 100 ml Iso josr 300 IV contrast. Delayed images through the kidneys and coronal/sagittal reconstructions perform ed. CT DLP: 792.4 mGycm Automated exposure control for dose reduction was used. FINDINGS: Heart upper limits of normal in size without pericardial effusion. Strandy atelectasis of the lower l ungs without pleural effusion. No focal liver lesion or biliary ductal dilatation. Portal venous system is patent. Gallbladder, adrenal glands, spleen, and pancreas appear within normal limits. 1.2 cm parapelvic cyst mid right kidney. 4 mm nonobstructive calculus upper to mid pole left kidney a s well as a 2.6 cm upper pole cyst. No dilated small bowel, free fluid, or free air. Some prominent fluid-filled small bowel loops are pr esent in the mid and lower abdomen. This seems to be very mild mesenteric haziness in this region. F or example, refer to axial image 43, 49, 50, and 53. Normal appendix. No mesenteric or retroperitoneal lymphadenopathy seen. [id number] stool burden. Left hemicolonic diverticulosis, greatest in the sigmoid colon. No per icolonic inflammatory change seen. Bladder nondistended. Uterus anteverted. Both ovaries are visualized. No abnormal fluid collection in the pelvis are pelvic lymphadenopathy. Bones: Mild degenerative change at the hips. No osseous destructive process. There is a nodular soft tissue density in the precoccygeal region measuring 1.7 cm, unchanged from 09/17/2018. IMPRESSION: 1. PROMINENT FLUID-FILLED SMALL BOWEL LOOPS IN THE MID AND LOWER ABDOMEN. THERE MAY BE A FEW SCATTERE D AREAS OF MILD ASSOCIATED MESENTERIC INFLAMMATION. CORRELATE FOR INFECTIOUS OR INFLAMMATORY ENTERITI S. 2. LEFT-SIDED CLONIC DIVERTICULOSIS WITHOUT EVIDENCE FOR ACUTE DIVERTICULITIS. NORMAL APPENDIX. 3. 4 MM NONOBSTRUCTIVE LEFT RENAL CALCULUS. 4. INCIDENTAL 1.7 CM SOFT TISSUE NODULE IN THE PRECOCCYGEAL REGION. THIS IS STABLE FOR APPROXIMATELY 2 MONTHS. NERVE SHEATH TUMOR OR MESENCHYMAL TUMOR ARE POSSIBLE. DUPLICATION CYST, HAMARTOMA, AND EPID ERMOID CYSTS ARE SOME ADDITIONAL DIFFERENTIAL CONSIDERATIONS. SIX-MONTH FOLLOW-UP CT TO REASSESS.
[2018-10-04 12:02] VITALS: BP 115/72; PULSE 63; TEMP 97.7
== END 2018-10-04 13:15 | disposition home or self-care (01) ==
LOC: EC 06:12
DX: R10.13 Epigastric pain (principal); M79.89 Other specified soft tissue disorders; R11.0 Nausea; R63.8 Other symptoms and signs concerning food and fluid intake; E07.9 Disorder of thyroid, unspecified; Z87.891 Personal history of nicotine dependence; Z88.0 Allergy status to penicillin; Z91.040 Latex allergy status; Z79.890 Hormone replacement therapy; Z79.899 Other long term (current) drug therapy
CPT/HCPCS: 36415; 80053; 82150; 83690; 85025; 81001; 74018; 76705; 74177; 99284; 96374; 96375 ×2; 96372; J0500; J2405; J1170; Q9967

== ENCOUNTER → 2019-02-13 | Outpatient (CLI) | payer OTHER ==
[2019-02-13 11:23] LABS: Basophils # (A) 0.1 k/uL (0-0.2); Basophils % (A) 1 %; Eosinophils # (A) 0.1 k/uL (0-0.7); Eosinophils % (A) 1 %; HCT 39.5 % (34.0-46.0); HGB 12.7 gm/dL (11.4-16.0); Lymphocytes # (A) 1.5 k/uL (1.0-4.8); Lymphocytes % (A) 33 %; MCH 27.9 pg (25.0-35.0); MCHC 32.2 g/dL (31.0-37.0); MCV 86.6 fL (80.0-100.0); Mean Platelet Volume 9.9; Monocytes # (A) 0.2 k/uL (0-1.0); Monocytes % (A) 5 %; Neutrophils # (A) 2.7 k/uL (1.3-7.7); Neutrophils % (A) 58 %; Platelet Count 163 k/uL (150-450); RBC 4.56 m/uL (3.80-5.40); RDW 14.1 % (11.5-15.5); WBC 4.7 k/uL (3.8-10.6)
[2019-02-13 16:24] LABS: African American GFR (CKD) 100.3 (60.0-200.0); Albumin 4.5 g/dL (3.80-4.90); Albumin/Globulin Ratio 1.61 (1.60-3.17); Anion Gap 8.9 mmol/L (4.00-12.00); BUN/Creat Ratio 17.5 Ratio (12.00-20.00); Calcium 9.5 mg/dL (8.7-10.3); Carbon Dioxide 28.1 mmol/L (21.6-31.8); Globulin 2.8 g/dL (1.6-3.3); Potassium 3.6 mmol/L (3.5-5.5); Total Bilirubin 0.4 mg/dL (0.3-1.2); Total Protein 7.3 g/dL (6.2-8.2)
== END | disposition home or self-care (01) ==
LOC: LABWHC1 10:11
PROVIDERS: ATTEND Internal Medicine Cardiovascular Disease
DX: I10 Essential (primary) hypertension (principal); R07.89 Other chest pain
CPT/HCPCS: 36415; 80053; 83880; 85025

== ENCOUNTER 2019-02-28 18:30 | Emergency (ER) | payer OTHER ==
[2019-02-28 18:51] VITALS: BP 153/95; PULSE 78; RESP 18; TEMP 98
[2019-02-28 19:33] LABS: Basophils # (A) 0.1 k/uL (0-0.2); Basophils % (A) 1 %; Eosinophils # (A) 0.1 k/uL (0-0.7); Eosinophils % (A) 1 %; HCT 41.1 % (34.0-46.0); HGB 13.3 gm/dL (11.4-16.0); Lymphocytes # (A) 2.7 k/uL (1.0-4.8); Lymphocytes % (A) 28 %; MCH 28.6 pg (25.0-35.0); MCHC 32.4 g/dL (31.0-37.0); MCV 88.2 fL (80.0-100.0); Mean Platelet Volume 8.8; Monocytes # (A) 0.3 k/uL (0-1.0); Monocytes % (A) 3 %; Neutrophils # (A) 6.2 k/uL (1.3-7.7); Neutrophils % (A) 65 %; Platelet Count 159 k/uL (150-450); RBC 4.66 m/uL (3.80-5.40); RDW 14.5 % (11.5-15.5); WBC 9.5 k/uL (3.8-10.6)
[2019-02-28 19:43] LABS: INR 0.9 (<1.2); Partial Thromboplastin Time 24.4 sec (22.0-30.0); Prothrombin Time 9.9 sec (9.0-12.0)
[2019-02-28 19:46] LABS: ALT 16 U/L (9-52); AST 18 U/L (14-36); African American GFR (CKD) >90 (>60 ml/min/1.73 sqM); Albumin 4.3 g/dL (3.5-5.0); Alkaline Phosphatase 88 U/L (38-126); Amylase 143 U/L (30-110); Anion Gap 12 mmol/L; Blood Urea Nitrogen 17 mg/dL (7-17); Carbon Dioxide 29 mmol/L (22-30); Chloride 100 mmol/L (98-107); Glucose 100 mg/dL (74-99); Magnesium 1.9 mg/dL (1.6-2.3); Potassium 3.9 mmol/L (3.5-5.1); Sodium 141 mmol/L (137-145); Total Bilirubin 0.3 mg/dL (0.2-1.3); Total Protein 7.8 g/dL (6.3-8.2)
[2019-02-28 20:00] LABS: Creatine Kinase 40 U/L (30-135)
[2019-02-28 20:13] LABS: Creatine Kinase MB <0.2 ng/mL (0.0-2.4); Troponin I <0.012 ng/mL (0.000-0.034)
--- NOTE | 2019-02-28 21:21 | ED ---
Abdominal Pain HPI - General Chief Complaint: Abdominal Pain Stated Complaint: CHEST PAIN Time Seen by Provider: 02/28/19 21:20 Source: patient Mode of arrival: wheelchair Limitations: no limitations - Related Data Home Medications Medication Instructions Recorded Confirmed Levothyroxine Sodium [Synthroid] 125 mcg PO DAILY 01/10/16 10/04/18 Cholecalciferol [Vitamin D3 (25 5,000 unit PO DAILY 10/04/18 10/04/18 Mcg = 1000 Iu)] Previous Rx's Medication Instructions Recorded Dicyclomine [Bentyl] 20 mg PO QID #20 tablet 10/04/18 Allergies Allergy/AdvReac Type Severity Reaction Status Date / Time latex Allergy RED SKIN Verified 10/04/18 08:27 AND BLISTERS Penicillins Allergy Rash/Hives Verified 10/04/18 08:27 sulfur dioxide Allergy Unknown Verified 02/28/19 18:51 Review of Systems ROS Statement: Those systems with pertinent positive or pertinent negative responses have been documented in the HPI. ROS Other: All systems not noted in ROS Statement are negative. Past Medical History Past Medical History: Osteoarthritis (OA), Thyroid Disorder Additional Past Medical History / Comment(s): KIDNEY STONE, History of Any Multi-Drug Resistant Organisms: None Reported Past Surgical History: Breast Surgery, Section, Tubal Ligation Additional Past Surgical History / Comment(s): LUNG BIOPSY, Past Anesthesia/Blood Transfusion Reactions: No Reported Reaction Past Psychological History: No Psychological Hx Reported Smoking Status: Former smoker Past Alcohol Use History: None Reported Past Drug Use History: None Reported - Past Family History Mother Family Medical History: No Reported History General Exam Limitations: no limitations Course Vital Signs 02/28/19 18:49 Temperature 98.0 F Pulse Rate 78 Respiratory 18 Rate Blood Pressure 153/95 O2 Sat by Pulse 100 Oximetry Medical Decision Making - Medical Decision Making Advanced Triage Protocol orders were placed for this patient, I signed up to see the patient but the patient had left the emergency department prior to being evaluated. - Lab Data Result diagrams: 02/28/19 19:05 02/28/19 19:05 Lab Results 02/28/19 02/28/19 02/28/19 Range/Units 19:05 19:05 19:05 WBC 9.5 (3.8-10.6) k/uL RBC 4.66 (3.80-5.40) m/uL Hgb 13.3 (11.4-16.0) gm/dL Hct 41.1 (34.0-46.0) % MCV 88.2 (80.0-100.0) fL MCH 28.6 (25.0-35.0) pg MCHC 32.4 (31.0-37.0) g/dL RDW 14.5 (11.5-15.5) % Plt Count 159 (150-450) k/uL Neutrophils % 65 % Lymphocytes % 28 % Monocytes % 3 % Eosinophils % 1 % Basophils % 1 % Neutrophils # 6.2 (1.3-7.7) k/uL Lymphocytes # 2.7 (1.0-4.8) k/uL Monocytes # 0.3 (0-1.0) k/uL Eosinophils # 0.1 (0-0.7) k/uL Basophils # 0.1 (0-0.2) k/uL PT 9.9 (9.0-12.0) sec INR 0.9 (<1.2) APTT 24.4 (22.0-30.0) sec Sodium 141 (137-145) mmol/L Potassium 3.9 (3.5-5.1) mmol/L Chloride 100 (98-107) mmol/L Carbon Dioxide 29 (22-30) mmol/L Anion Gap 12 mmol/L BUN 17 (7-17) mg/dL Creatinine 0.83 (0.52-1.04) mg/dL Est GFR (CKD-EPI)AfAm >90 (>60 ml/min/1.73 sqM) Est GFR (CKD-EPI)NonAf 83 (>60 ml/min/1.73 sqM) Glucose 100 H (74-99) mg/dL Calcium 10.0 (8.4-10.2) mg/dL Magnesium 1.9 (1.6-2.3) mg/dL Total Bilirubin 0.3 (0.2-1.3) mg/dL AST 18 (14-36) U/L ALT 16 (9-52) U/L Alkaline Phosphatase 88 (38-126) U/L Total Creatine Kinase (30-135) U/L CK-MB (CK-2) (0.0-2.4) ng/mL CK-MB (CK-2) Rel Index Troponin I (0.000-0.034) ng/mL Total Protein 7.8 (6.3-8.2) g/dL Albumin 4.3 (3.5-5.0) g/dL Amylase 143 H (30-110) U/L Lipase 158 (23-300) U/L 02/28/19 Range/Units 19:05 WBC (3.8-10.6) k/uL RBC (3.80-5.40) m/uL Hgb (11.4-16.0) gm/dL Hct (34.0-46.0) % MCV (80.0-100.0) fL MCH (25.0-35.0) pg MCHC (31.0-37.0) g/dL RDW (11.5-15.5) % Plt Count (150-450) k/uL Neutrophils % % Lymphocytes % % Monocytes % % Eosinophils % % Basophils % % Neutrophils # (1.3-7.7) k/uL Lymphocytes # (1.0-4.8) k/uL Monocytes # (0-1.0) k/uL Eosinophils # (0-0.7) k/uL Basophils # (0-0.2) k/uL PT (9.0-12.0) sec INR (<1.2) APTT (22.0-30.0) sec Sodium (137-145) mmol/L Potassium (3.5-5.1) mmol/L Chloride (98-107) mmol/L Carbon Dioxide (22-30) mmol/L Anion Gap mmol/L BUN (7-17) mg/dL Creatinine (0.52-1.04) mg/dL Est GFR (CKD-EPI)AfAm (>60 ml/min/1.73 sqM) Est GFR (CKD-EPI)NonAf (>60 ml/min/1.73 sqM) Glucose (74-99) mg/dL Calcium (8.4-10.2) mg/dL Magnesium (1.6-2.3) mg/dL Total Bilirubin (0.2-1.3) mg/dL AST (14-36) U/L ALT (9-52) U/L Alkaline Phosphatase (38-126) U/L Total Creatine Kinase 40 (30-135) U/L CK-MB (CK-2) <0.2 (0.0-2.4) ng/mL CK-MB (CK-2) Rel Index Troponin I <0.012 (0.000-0.034) ng/mL Total Protein (6.3-8.2) g/dL Albumin (3.5-5.0) g/dL Amylase (30-110) U/L Lipase (23-300) U/L Disposition Clinical Impression: Abdominal pain Disposition: Left W/O Being Seen by Phys Condition: Undetermined Is patient prescribed a controlled substance at d/c from ED?: No Referrals: [facility] [Primary Care Provider] - 1-2 days
== END 2019-02-28 19:50 | disposition left against medical advice (07) ==
LOC: EC 18:30
DX: R10.9 Unspecified abdominal pain (principal); R07.9 Chest pain, unspecified; Z53.9 Procedure and treatment not carried out, unspecified reason
CPT/HCPCS: 36415; 80053; 82150; 82550; 82553; 83690; 83735; 84484; 85025; 85610; 85730; 93005; 99499

== ENCOUNTER → 2019-07-07 | Outpatient (CLI) | payer OTHER ==
--- NOTE | 2019-07-11 10:16 | MM ---
Reason for exam: screening (asymptomatic). Last mammogram was performed 1 year and 6 months ago. History: Patient is postmenopausal. MG pre op needle loc RT of the right breast, 2009. Physical Findings: A clinical breast exam by your physician is recommended on an annual basis and results should be correlated with mammographic findings. MG 3D Screening Mammo W/Cad Bilateral CC and MLO view(s) were taken. Prior study comparison: January 14, 2018, mammogram, performed at [facility]. July 28, 2016, mammogram, performed at [facility]. The breast tissue is heterogeneously dense. This may lower the sensitivity of mammography. No significant changes when compared with prior studies. ASSESSMENT: Benign, BI-RAD 2 RECOMMENDATION: Routine screening mammogram of both breasts in 1 year.
== END | disposition home or self-care (01) ==
LOC: RADMAMWWP 16:22
PROVIDERS: ATTEND Internal Medicine
DX: Z12.31 Encounter for screening mammogram for malignant neoplasm of breast (principal)
CPT/HCPCS: 77063; 77067

== ENCOUNTER → 2019-08-08 | Outpatient (CLI) | payer OTHER ==
[2019-08-08 11:05] LABS: Basophils % (A) 0 %; Eosinophils % (A) 1 %; HCT 40.4 % (34.0-46.0); HGB 12.9 gm/dL (11.4-16.0); Lymphocytes # (A) 1.8 k/uL (1.0-4.8); Lymphocytes % (A) 42 %; MCH 28.1 pg (25.0-35.0); MCV 87.7 fL (80.0-100.0); Mean Platelet Volume 9.8; Monocytes # (A) 0.3 k/uL (0-1.0); Monocytes % (A) 8 %; Neutrophils % (A) 47 %; Platelet Count 135 k/uL (150-450); RBC 4.61 m/uL (3.80-5.40); RDW 13.4 % (11.5-15.5); WBC 4.3 k/uL (3.8-10.6)
[2019-08-08 17:08] LABS: African American GFR (CKD) 117.1 (60.0-200.0); BUN/Creat Ratio 17.14 Ratio (12.00-20.00); Calcium 9.4 mg/dL (8.7-10.3)
== END | disposition home or self-care (01) ==
LOC: LABWHC1 09:50
PROVIDERS: ATTEND Internal Medicine Cardiovascular Disease
DX: I10 Essential (primary) hypertension (principal)
CPT/HCPCS: 36415; 80048; 85025

== ENCOUNTER 2019-10-18 12:57 | Emergency (ER) | payer OTHER ==
[2019-10-18 13:06] VITALS: RESP 18
[2019-10-18] MEDS ORDERED: PANTOPRAZOLE 40 MG/10 ML VIAL IVP STA (13:30)
[2019-10-18] MEDS ORDERED: MORPHINE SULFATE 4 MG/ML SYRINGE IV STA (13:30)
[2019-10-18] MEDS ORDERED: KETOROLAC 30 MG/ML 1 ML VIAL IVP STA (13:30)
[2019-10-18] MEDS ORDERED: SODIUM CHLORIDE 0.9% 1,000 ML IV STA ×2 (13:30)
--- NOTE | 2019-10-18 13:41 | ED ---
Abdominal Pain HPI - General Chief Complaint: Abdominal Pain Stated Complaint: Flank/abd pain Time Seen by Provider: 10/18/19 13:09 Source: patient, RN notes reviewed, old records reviewed Mode of arrival: wheelchair Limitations: no limitations - History of Present Illness Initial Comments: Dorothy is a 49-year-old female presents emergency department today with 1 month of abdominal pain and right-sided flank pain. Patient reports that she seen her PCP and completed a course of an antibiotic for suspected urinary tract infection. Patient states that she has no nausea or vomiting associated with this. Denies any significant change in bowel habits. Patient relates that she will get this sharp stabbing pain and colicky in nature from the right flank towards the right lower abdomen. - Related Data Home Medications Medication Instructions Recorded Confirmed Levothyroxine Sodium [Synthroid] 125 mcg PO DAILY 01/10/16 10/18/19 Cholecalciferol [Vitamin D3 (25 5,000 unit PO DAILY 10/04/18 10/18/19 Mcg = 1000 Iu)] Cyclobenzaprine [Flexeril] 10 mg PO BID PRN 10/18/19 10/18/19 DULoxetine HCL [Cymbalta] 20 mg PO DAILY 10/18/19 10/18/19 Losartan Potassium [Cozaar] 25 mg PO DAILY 10/18/19 10/18/19 Previous Rx's Medication Instructions Recorded traMADol HCL [Ultram] 50 mg PO Q6HR PRN 3 Days #12 tab 10/18/19 Allergies Allergy/AdvReac Type Severity Reaction Status Date / Time latex Allergy RED SKIN Verified 10/18/19 13:56 AND BLISTERS Penicillins Allergy Rash/Hives Verified 10/18/19 13:56 Sulfa (Sulfonamide Allergy Unknown Verified 10/18/19 13:56 Antibiotics) sulfur dioxide Allergy Unknown Verified 10/18/19 13:56 Review of Systems ROS Statement: Those systems with pertinent positive or pertinent negative responses have been documented in the HPI. ROS Other: All systems not noted in ROS Statement are negative. Past Medical History Past Medical History: Osteoarthritis (OA), Thyroid Disorder Additional Past Medical History / Comment(s): KIDNEY STONE, History of Any Multi-Drug Resistant Organisms: None Reported Past Surgical History: Breast Surgery, Section, Tubal Ligation Additional Past Surgical History / Comment(s): LUNG BIOPSY, Past Anesthesia/Blood Transfusion Reactions: No Reported Reaction Past Psychological History: No Psychological Hx Reported Smoking Status: Former smoker Past Alcohol Use History: None Reported Past Drug Use History: None Reported - Past Family History Mother Family Medical History: No Reported History General Exam - General Exam Comments Initial Comments: 49 year old female, moderate discomfort. Limitations: no limitations General appearance: alert, in no apparent distress Head exam: Present: atraumatic, normocephalic, normal inspection Eye exam: Present: normal appearance, PERRL, EOMI. Absent: scleral icterus, conjunctival injection, periorbital swelling ENT exam: Present: normal exam, mucous membranes moist Neck exam: Present: normal inspection. Absent: tenderness, meningismus, lymphadenopathy Respiratory exam: Present: normal lung sounds bilaterally. Absent: respiratory distress, wheezes, rales, rhonchi, stridor Cardiovascular Exam: Present: regular rate, normal rhythm, normal heart sounds. Absent: systolic murmur, diastolic murmur, rubs, gallop, clicks GI/Abdominal exam: Present: soft, tenderness (RLQ and RUQ tenderness,), normal bowel sounds. Absent: distended, guarding, rebound, rigid Extremities exam: Present: normal inspection, full ROM, normal capillary refill. Absent: tenderness, pedal edema, joint swelling, calf tenderness Back exam: Present: normal inspection Neurological exam: Present: alert, oriented X3, CN II-XII intact Psychiatric exam: Present: normal affect, normal mood Skin exam: Present: warm, dry, intact, normal color. Absent: rash Course Vital Signs 10/18/19 10/18/19 13:03 15:55 Temperature 98.3 F 98.5 F Pulse Rate 86 74 Respiratory 18 18 Rate Blood Pressure 137/87 143/79 O2 Sat by Pulse 100 100 Oximetry Medical Decision Making - Medical Decision Making 49 year old female with right abdominal pain with radiation from right lower and upper quadrant towardds the back intermittently for one month. At this time labs are normal. As patient still complains of pain, CT scan completed. This is negative for explanation of patient pain. Discussed she may need a colonoscopy as well as possible musculoskeletal reason for pain. Discussed return parameters. Discussed PCP follow up. - Lab Data Result diagrams: 10/18/19 13:46 10/18/19 13:46 Lab Results 05/20/20 05/20/20 05/20/20 Range/Units 13:46 13:46 13:46 WBC 5.0 (3.8-10.6) k/uL RBC 4.65 (3.80-5.40) m/uL Hgb 12.8 (11.4-16.0) gm/dL Hct 40.9 (34.0-46.0) % MCV 88.0 (80.0-100.0) fL MCH 27.4 (25.0-35.0) pg MCHC 31.2 (31.0-37.0) g/dL RDW 13.9 (11.5-15.5) % Plt Count 145 L (150-450) k/uL Neutrophils % 58 % Lymphocytes % 33 % Monocytes % 6 % Eosinophils % 1 % Basophils % 0 % Neutrophils # 2.9 (1.3-7.7) k/uL Lymphocytes # 1.6 (1.0-4.8) k/uL Monocytes # 0.3 (0-1.0) k/uL Eosinophils # 0.1 (0-0.7) k/uL Basophils # 0.0 (0-0.2) k/uL PT 9.8 (9.0-12.0) sec INR 0.9 (<1.2) APTT 25.5 (22.0-30.0) sec Sodium (137-145) mmol/L Potassium (3.5-5.1) mmol/L Chloride (98-107) mmol/L Carbon Dioxide (22-30) mmol/L Anion Gap mmol/L BUN (7-17) mg/dL Creatinine (0.52-1.04) mg/dL Est GFR (CKD-EPI)AfAm (>60 ml/min/1.73 sqM) Est GFR (CKD-EPI)NonAf (>60 ml/min/1.73 sqM) Glucose (74-99) mg/dL Calcium (8.4-10.2) mg/dL Total Bilirubin (0.2-1.3) mg/dL AST (14-36) U/L ALT (4-34) U/L Alkaline Phosphatase (38-126) U/L Total Protein (6.3-8.2) g/dL Albumin (3.5-5.0) g/dL Amylase (30-110) U/L Lipase (23-300) U/L Urine Color Yellow Urine Appearance Clear (Clear) Urine pH 6.0 (5.0-8.0) Ur Specific [place] 1.013 (1.001-1.035) Urine Protein Negative (Negative) Urine Glucose (UA) Negative (Negative) Urine Ketones Negative (Negative) Urine Blood Negative (Negative) Urine Nitrite Negative (Negative) Urine Bilirubin Negative (Negative) Urine Urobilinogen <2.0 (<2.0) mg/dL Ur Leukocyte Esterase Negative (Negative) 10/18/19 Range/Units 13:46 WBC (3.8-10.6) k/uL RBC (3.80-5.40) m/uL Hgb (11.4-16.0) gm/dL Hct (34.0-46.0) % MCV (80.0-100.0) fL MCH (25.0-35.0) pg MCHC (31.0-37.0) g/dL RDW (11.5-15.5) % Plt Count (150-450) k/uL Neutrophils % % Lymphocytes % % Monocytes % % Eosinophils % % Basophils % % Neutrophils # (1.3-7.7) k/uL Lymphocytes # (1.0-4.8) k/uL Monocytes # (0-1.0) k/uL Eosinophils # (0-0.7) k/uL Basophils # (0-0.2) k/uL PT (9.0-12.0) sec INR (<1.2) APTT (22.0-30.0) sec Sodium 136 L (137-145) mmol/L Potassium 4.6 (3.5-5.1) mmol/L Chloride 101 (98-107) mmol/L Carbon Dioxide 28 (22-30) mmol/L Anion Gap 7 mmol/L BUN 10 (7-17) mg/dL Creatinine 0.68 (0.52-1.04) mg/dL Est GFR (CKD-EPI)AfAm >90 (>60 ml/min/1.73 sqM) Est GFR (CKD-EPI)NonAf >90 (>60 ml/min/1.73 sqM) Glucose 89 (74-99) mg/dL Calcium 9.3 (8.4-10.2) mg/dL Total Bilirubin 0.4 (0.2-1.3) mg/dL AST 37 H (14-36) U/L ALT 33 (4-34) U/L Alkaline Phosphatase 85 (38-126) U/L Total Protein 7.6 (6.3-8.2) g/dL Albumin 4.3 (3.5-5.0) g/dL Amylase 129 H (30-110) U/L Lipase 102 (23-300) U/L Urine Color Urine Appearance (Clear) Urine pH (5.0-8.0) Ur Specific [place] (1.001-1.035) Urine Protein (Negative) Urine Glucose (UA) (Negative) Urine Ketones (Negative) Urine Blood (Negative) Urine Nitrite (Negative) Urine Bilirubin (Negative) Urine Urobilinogen (<2.0) mg/dL Ur Leukocyte Esterase (Negative) - Radiology Data Radiology results: report reviewed CT abdomena nd pelvis are negative for findings related to Right abdominal and flank pain. Disposition Clinical Impression: Right flank pain, Right lateral abdominal pain Disposition: HOME SELF-CARE Condition: Good Instructions (If sedation given, give patient instructions): Flank Pain (ED) Additional Instructions: Recommended Patient follow-up with primary care doctor and should recommend doing upper and lower GI scope. The Patient should return to the ED if any alarming signs or symptoms occur. Take medication as prescribed Prescriptions: traMADol HCL [Ultram] 50 mg PO Q6HR PRN 3 Days #12 tab PRN Reason: Pain Is patient prescribed a controlled substance at d/c from ED?: No Referrals: Carisa Tejada CRNP [Primary Care Provider] - 1-2 days Time of Disposition: 15:41
[2019-10-18 14:19] LABS: Basophils % (A) 0 %; Eosinophils # (A) 0.1 k/uL (0-0.7); Eosinophils % (A) 1 %; HCT 40.9 % (34.0-46.0); HGB 12.8 gm/dL (11.4-16.0); Lymphocytes # (A) 1.6 k/uL (1.0-4.8); Lymphocytes % (A) 33 %; MCH 27.4 pg (25.0-35.0); MCHC 31.2 g/dL (31.0-37.0); Mean Platelet Volume 10.2; Monocytes # (A) 0.3 k/uL (0-1.0); Monocytes % (A) 6 %; Neutrophils # (A) 2.9 k/uL (1.3-7.7); Neutrophils % (A) 58 %; Platelet Count 145 k/uL (150-450); RBC 4.65 m/uL (3.80-5.40); RDW 13.9 % (11.5-15.5)
[2019-10-18 14:25] LABS: Appearance,Urine Clear (Clear); Bilirubin,Urine Negative (Negative); Blood,Urine Negative (Negative); Color,Urine Yellow; Glucose,Urine (UA) Negative (Negative); Ketones,Urine Negative (Negative); Leukocyte Esterase,Urine Negative (Negative); Nitrite,Urine Negative (Negative); Protein,Urine Negative (Negative); Specific Gravity,Urine 1.013 (1.001-1.035); Urobilinogen,Urine <2.0 mg/dL (<2.0)
[2019-10-18 14:30] LABS: ALT 33 U/L (4-34); AST 37 U/L (14-36); African American GFR (CKD) >90 (>60 ml/min/1.73 sqM); Albumin 4.3 g/dL (3.5-5.0); Alkaline Phosphatase 85 U/L (38-126); Amylase 129 U/L (30-110); Anion Gap 7 mmol/L; Blood Urea Nitrogen 10 mg/dL (7-17); Calcium 9.3 mg/dL (8.4-10.2); Carbon Dioxide 28 mmol/L (22-30); Chloride 101 mmol/L (98-107); Glucose 89 mg/dL (74-99); Non-African American GFR(CKD) >90 (>60 ml/min/1.73 sqM); Potassium 4.6 mmol/L (3.5-5.1); Sodium 136 mmol/L (137-145); Total Bilirubin 0.4 mg/dL (0.2-1.3); Total Protein 7.6 g/dL (6.3-8.2)
[2019-10-18 14:31] LABS: INR 0.9 (<1.2); Partial Thromboplastin Time 25.5 sec (22.0-30.0); Prothrombin Time 9.8 sec (9.0-12.0)
--- NOTE | 2019-10-18 15:27 | CT ---
EXAMINATION TYPE: CT abdomen pelvis w con DATE OF EXAM: 10/18/2019 HISTORY: Right flank and abdominal pain. CT DLP: 1092.4mGycm Automated Exposure Control for Dose Reduction was Utilized. CONTRAST: CT scan of the abdomen and pelvis is performed without oral and with IV Contrast, patient injected wi th 100 mL of Isovue 370. COMPARISON: CT abdomen and pelvis October 04, 2018 FINDINGS: LUNG BASES: No significant abnormality is appreciated. LIVER/GB: No significant abnormality is appreciated. PANCREAS: No significant abnormality is seen. SPLEEN: No significant abnormality is seen. ADRENALS: No significant abnormality is seen. KIDNEYS: Symmetric with myelographic excretion from both kidneys without hydronephrosis seen bilatera lly. Stable 2.6 cm simple appearing thin-walled cyst laterally upper pole of the left kidney and roug hly 1.0 cm simple appearing parapelvic cyst centrally right kidney seen best on axial image 33 series 301. Probable stable 2 to 3 mm nonobstructing calculus upper pole left kidney seen best coronal imag e 62. BOWEL: Suboptimal evaluation ball without enteric contrast. Stomach poorly distended and suboptimally evaluated. Normal-appearing appendix seen from base of cecum in the right lower quadrant. No suspici ous small or large bowel dilatation. Scattered diverticula throughout the colon greatest in the left and sigmoid colon. No CT evidence for acute diverticulitis. UTERUS/ADNEXA: Anteverted uterus. No suspicious adnexal masses. LYMPH NODES: No greater than 1cm abdominal or pelvic lymph nodes are appreciated. OSSEOUS STRUCTURES: [id number] axial joint space loss in both hips. OTHER: No significant additional abnormality is seen. IMPRESSION: No significant new or acute finding is seen to account for patient's clinical symptoms ol d right flank and abdominal pain.
[2019-10-18] MEDS ORDERED: traMADol 50 MG STARTER PACK 3 TAB BTL PO STA (15:40)
[2019-10-18 15:56] VITALS: BP 143/79; PULSE 74; TEMP 98.5
== END 2019-10-18 15:59 | disposition home or self-care (01) ==
LOC: EC 12:57
DX: R10.9 Unspecified abdominal pain (principal); E07.9 Disorder of thyroid, unspecified; Z79.890 Hormone replacement therapy; Z79.899 Other long term (current) drug therapy; Z88.0 Allergy status to penicillin; Z88.2 Allergy status to sulfonamides; Z91.040 Latex allergy status; Z91.048 Other nonmedicinal substance allergy status; Z87.891 Personal history of nicotine dependence
CPT/HCPCS: 36415; 80053; 82150; 83690; 85025; 85610; 85730; 81003; 74177; 99284; 96374; 96375 ×2; 96361 ×2; J2270; J1885; C9113; Q9967

== ENCOUNTER 2019-10-26 15:20 | Emergency (ER) | payer OTHER ==
[2019-10-26 15:26] VITALS: RESP 18; TEMP 98.2
[2019-10-26] MEDS ORDERED: PANTOPRAZOLE 40 MG/10 ML VIAL IVP STA (15:43)
[2019-10-26] MEDS ORDERED: KETOROLAC 30 MG/ML 1 ML VIAL IVP STA (15:43)
[2019-10-26] MEDS ORDERED: ONDANSETRON 4 MG/2 ML VIAL IVP STA (15:43)
[2019-10-26] MEDS ORDERED: SODIUM CHLORIDE 0.9% 1,000 ML IV STA (15:43)
--- NOTE | 2019-10-26 15:46 | ED ---
Abdominal Pain HPI - General Chief Complaint: Abdominal Pain Stated Complaint: flank pain Time Seen by Provider: 10/26/19 15:30 Source: patient Mode of arrival: wheelchair Limitations: no limitations - History of Present Illness Initial Comments: Patient is a 49-year-old female presenting to the emergency department with chief complaint of abdominal pain. Patient states she's been emergency Department one week ago it was advised to follow-up with the GI specialist for an upper and lower GI scope. Patient reports the patient is located in the right flank region and radiating to the right side of the abdomen. States the pain has been ongoing for the last several months. Denies any diarrhea but does report some nausea today but no vomiting. Patient states today she attempted to wipe after having a bowel movement and noticed bright red blood. States there is no pain with bowel movements or itching. States this does not feel like a hemorrhoid. States she is going to menopause. Denies any urinary or vaginal symptoms. Denies hematuria, hematochezia or melena. - Related Data Home Medications Medication Instructions Recorded Confirmed Levothyroxine Sodium [Synthroid] 125 mcg PO DAILY 01/10/16 10/18/19 Cholecalciferol [Vitamin D3 (25 5,000 unit PO DAILY 10/04/18 10/18/19 Mcg = 1000 Iu)] Cyclobenzaprine [Flexeril] 10 mg PO BID PRN 10/18/19 10/18/19 DULoxetine HCL [Cymbalta] 20 mg PO DAILY 10/18/19 10/18/19 Losartan Potassium [Cozaar] 25 mg PO DAILY 10/18/19 10/18/19 Previous Rx's Medication Instructions Recorded traMADol HCL [Ultram] 50 mg PO Q6HR PRN 3 Days #12 tab 10/18/19 Allergies Allergy/AdvReac Type Severity Reaction Status Date / Time latex Allergy RED SKIN Verified 10/18/19 13:56 AND BLISTERS Penicillins Allergy Rash/Hives Verified 10/18/19 13:56 Sulfa (Sulfonamide Allergy Unknown Verified 10/18/19 13:56 Antibiotics) sulfur dioxide Allergy Unknown Verified 10/18/19 13:56 Review of Systems ROS Statement: Those systems with pertinent positive or pertinent negative responses have been documented in the HPI. ROS Other: All systems not noted in ROS Statement are negative. Past Medical History Past Medical History: Osteoarthritis (OA), Thyroid Disorder Additional Past Medical History / Comment(s): KIDNEY STONE, History of Any Multi-Drug Resistant Organisms: None Reported Past Surgical History: Breast Surgery, Section, Tubal Ligation Additional Past Surgical History / Comment(s): LUNG BIOPSY, Past Anesthesia/Blood Transfusion Reactions: No Reported Reaction Past Psychological History: No Psychological Hx Reported Smoking Status: Former smoker Past Alcohol Use History: None Reported Past Drug Use History: None Reported - Past Family History Mother Family Medical History: No Reported History General Exam Limitations: no limitations General appearance: alert, in no apparent distress Head exam: Present: atraumatic, normocephalic, normal inspection Eye exam: Present: normal appearance, PERRL, EOMI Pupils: Present: normal accommodation ENT exam: Present: normal exam, normal oropharynx, mucous membranes moist Neck exam: Present: normal inspection, full ROM Respiratory exam: Present: normal lung sounds bilaterally Cardiovascular Exam: Present: regular rate, normal rhythm, normal heart sounds GI/Abdominal exam: Present: soft, tenderness (Right flank). Absent: distended, guarding, rebound Rectal exam: Present: normal inspection, normal rectal tone. Absent: hemorrho ids Extremities exam: Present: normal inspection, full ROM Back exam: Present: normal inspection, full ROM, CVA tenderness (R) Neurological exam: Present: alert, oriented X3 Psychiatric exam: Present: normal affect, normal mood Skin exam: Present: warm, dry, intact, normal color Course Vital Signs 10/26/19 15:23 Temperature 98.2 F Pulse Rate 88 Respiratory 18 Rate Blood Pressure 146/98 O2 Sat by Pulse 98 Oximetry Medical Decision Making - Medical Decision Making Patient is a 49-year-old female presenting to the emergency department with a chief complaint of abdominal pain. Patient was evaluated in the emergency department one week ago with similar complaints. On exam she did have right CVA tenderness with mild right flank pain. Rectal exam is unremarkable with no signs of hemorrhoids or active bleeding. This time, she complained of hematoc hezia. Hemoccult is negative. CBC CMP and UA are unremarkable. Patient also received CT of abdomen and pelvis one week ago which revealed no acute findings. Advised patient to follow up with a GI specialist and obtain an upper and lower GI scope. Return parameters were thoroughly discussed patient was understanding and agreeable. Case discussed with physician. - Lab Data Result diagrams: 10/26/19 16:00 10/26/19 16:00 Lab Results 10/26/19 10/26/19 10/26/19 Range/Units 16:00 16:00 16:00 WBC 4.6 (3.8-10.6) k/uL RBC 4.34 (3.80-5.40) m/uL Hgb 12.1 (11.4-16.0) gm/dL Hct 38.0 (34.0-46.0) % MCV 87.5 (80.0-100.0) fL MCH 28.0 (25.0-35.0) pg MCHC 32.0 (31.0-37.0) g/dL RDW 14.0 (11.5-15.5) % Plt Count 147 L (150-450) k/uL Neutrophils % 56 % Lymphocytes % 35 % Monocytes % 6 % Eosinophils % 1 % Basophils % 0 % Neutrophils # 2.6 (1.3-7.7) k/uL Lymphocytes # 1.6 (1.0-4.8) k/uL Monocytes # 0.3 (0-1.0) k/uL Eosinophils # 0.1 (0-0.7) k/uL Basophils # 0.0 (0-0.2) k/uL Sodium 135 L (137-145) mmol/L Potassium 4.8 (3.5-5.1) mmol/L Chloride 103 (98-107) mmol/L Carbon Dioxide 24 (22-30) mmol/L Anion Gap 8 mmol/L BUN 9 (7-17) mg/dL Creatinine 0.57 (0.52-1.04) mg/dL Est GFR (CKD-EPI)AfAm >90 (>60 ml/min/1.73 sqM) Est GFR (CKD-EPI)NonAf >90 (>60 ml/min/1.73 sqM) Glucose 92 (74-99) mg/dL Calcium 9.0 (8.4-10.2) mg/dL Total Bilirubin 1.2 (0.2-1.3) mg/dL AST 53 H (14-36) U/L ALT 31 (4-34) U/L Alkaline Phosphatase 80 (38-126) U/L Total Protein 8.1 (6.3-8.2) g/dL Albumin 4.6 (3.5-5.0) g/dL Amylase 111 H (30-110) U/L Lipase 117 (23-300) U/L Urine Color Urine Appearance (Clear) Urine pH (5.0-8.0) Ur Specific Orrick (1.001-1.035) Urine Protein (Negative) Urine Glucose (UA) (Negative) Urine Ketones (Negative) Urine Blood (Negative) Urine Nitrite (Negative) Urine Bilirubin (Negative) Urine Urobilinogen (<2.0) mg/dL Ur Leukocyte Esterase (Negative) Urine RBC (0-5) /hpf Urine WBC (0-5) /hpf Ur Squamous Epith Cells (0-4) /hpf Urine Bacteria (None) /hpf Urine Mucus (None) /hpf Stool Occult Blood Negative (Negative) 10/26/19 Range/Units 16:40 WBC (3.8-10.6) k/uL RBC (3.80-5.40) m/uL Hgb (11.4-16.0) gm/dL Hct (34.0-46.0) % MCV (80.0-100.0) fL MCH (25.0-35.0) pg MCHC (31.0-37.0) g/dL RDW (11.5-15.5) % Plt Count (150-450) k/uL Neutrophils % % Lymphocytes % % Monocytes % % Eosinophils % % Basophils % % Neutrophils # (1.3-7.7) k/uL Lymphocytes # (1.0-4.8) k/uL Monocytes # (0-1.0) k/uL Eosinophils # (0-0.7) k/uL Basophils # (0-0.2) k/uL Sodium (137-145) mmol/L Potassium (3.5-5.1) mmol/L Chloride (98-107) mmol/L Carbon Dioxide (22-30) mmol/L Anion Gap mmol/L BUN (7-17) mg/dL Creatinine (0.52-1.04) mg/dL Est GFR (CKD-EPI)AfAm (>60 ml/min/1.73 sqM) Est GFR (CKD-EPI)NonAf (>60 ml/min/1.73 sqM) Glucose (74-99) mg/dL Calcium (8.4-10.2) mg/dL Total Bilirubin (0.2-1.3) mg/dL AST (14-36) U/L ALT (4-34) U/L Alkaline Phosphatase (38-126) U/L Total Protein (6.3-8.2) g/dL Albumin (3.5-5.0) g/dL Amylase (30-110) U/L Lipase (23-300) U/L Urine Color Yellow Urine Appearance Clear (Clear) Urine pH 7.0 (5.0-8.0) Ur Specific Orrick 1.016 (1.001-1.035) Urine Protein Negative (Negative) Urine Glucose (UA) Negative (Negative) Urine Ketones Negative (Negative) Urine Blood Trace H (Negative) Urine Nitrite Negative (Negative) Urine Bilirubin Negative (Negative) Urine Urobilinogen 2.0 (<2.0) mg/dL Ur Leukocyte Esterase Negative (Negative) Urine RBC 3 (0-5) /hpf Urine WBC 1 (0-5) /hpf Ur Squamous Epith Cells 1 (0-4) /hpf Urine Bacteria Rare H (None) /hpf Urine Mucus Rare H (None) /hpf Stool Occult Blood (Negative) Disposition Clinical Impression: Right flank pain, Right lateral abdominal pain, Nausea Disposition: HOME SELF-CARE Condition: Stable Instructions (If sedation given, give patient instructions): Abdominal Pain (ED) Additional Instructions: Please follow up with a GI specialist. Return to emergency department if symptoms worsen. Is patient prescribed a controlled substance at d/c from ED?: No [facility] - 1-2 days Roxi Sanderson MD [STAFF PHYSICIAN] - 1-2 days Time of Disposition: 17:15
[2019-10-26 16:16] LABS: Basophils % (A) 0 %; Eosinophils # (A) 0.1 k/uL (0-0.7); Eosinophils % (A) 1 %; HGB 12.1 gm/dL (11.4-16.0); Lymphocytes # (A) 1.6 k/uL (1.0-4.8); Lymphocytes % (A) 35 %; MCV 87.5 fL (80.0-100.0); Mean Platelet Volume 9.8; Monocytes # (A) 0.3 k/uL (0-1.0); Monocytes % (A) 6 %; Neutrophils # (A) 2.6 k/uL (1.3-7.7); Neutrophils % (A) 56 %; Platelet Count 147 k/uL (150-450); RBC 4.34 m/uL (3.80-5.40); WBC 4.6 k/uL (3.8-10.6)
[2019-10-26 16:24] LABS: ALT 31 U/L (4-34); AST 53 U/L (14-36); African American GFR (CKD) >90 (>60 ml/min/1.73 sqM); Albumin 4.6 g/dL (3.5-5.0); Alkaline Phosphatase 80 U/L (38-126); Amylase 111 U/L (30-110); Anion Gap 8 mmol/L; Blood Urea Nitrogen 9 mg/dL (7-17); Carbon Dioxide 24 mmol/L (22-30); Chloride 103 mmol/L (98-107); Glucose 92 mg/dL (74-99); Non-African American GFR(CKD) >90 (>60 ml/min/1.73 sqM); Potassium 4.8 mmol/L (3.5-5.1); Sodium 135 mmol/L (137-145); Total Bilirubin 1.2 mg/dL (0.2-1.3); Total Protein 8.1 g/dL (6.3-8.2)
[2019-10-26 16:55] LABS: Appearance,Urine Clear (Clear); Bacteria,Urine Rare /hpf; Bilirubin,Urine Negative (Negative); Blood,Urine Trace (Negative); Color,Urine Yellow; Glucose,Urine (UA) Negative (Negative); Ketones,Urine Negative (Negative); Leukocyte Esterase,Urine Negative (Negative); Mucus,Urine Rare /hpf; Nitrite,Urine Negative (Negative); Protein,Urine Negative (Negative); RBC,Urine 3 /hpf (0-5); Specific Gravity,Urine 1.016 (1.001-1.035); Squamous Epithelial Cell,Urine 1 /hpf (0-4); WBC,Urine 1 /hpf (0-5)
[2019-10-26 18:00] VITALS: BP 144/92; PULSE 67
== END 2019-10-26 18:01 | disposition home or self-care (01) ==
LOC: EC 15:20
DX: R10.9 Unspecified abdominal pain (principal); R11.0 Nausea; K92.1 Melena; E07.9 Disorder of thyroid, unspecified; Z79.890 Hormone replacement therapy; Z91.040 Latex allergy status; Z88.0 Allergy status to penicillin; Z88.2 Allergy status to sulfonamides; Z87.891 Personal history of nicotine dependence; Z87.442 Personal history of urinary calculi
CPT/HCPCS: 36415; 80053; 82150; 83690; 85025; 82272; 81001; 96374; 96375 ×2; 96361; 99284; J2405; J1885; C9113

== ENCOUNTER → 2020-09-16 | Outpatient (CLI) | payer OTHER ==
[2020-09-16 08:58] LABS: Protein/Creatinine Ratio,Urine 0.124
[2020-09-16 15:10] LABS: Basophils # (A) 0.01 X 10*3/uL (0.00-0.10); Basophils % (A) 0.2 %; Eosinophils # (A) 0.01 X 10*3/uL (0.04-0.35); Eosinophils % (A) 0.2 %; HCT 38.3 % (37.2-46.3); HGB 11.7 g/dL (12.0-15.0); Lymphocytes # (A) 1.67 X 10*3/uL (0.90-5.00); Lymphocytes % (A) 32.1 %; MCH 27.2 pg (27.0-32.0); MCHC 30.5 g/dL (32.0-37.0); MCV 89.1 fL (80.0-97.0); Mean Platelet Volume 12.6 fL (9.5-12.2); Monocytes # (A) 0.41 X 10*3/uL (0.20-1.00); Monocytes % (A) 7.9 %; Neutrophils # (A) 3.08 X 10*3/uL (1.80-7.70); Neutrophils % (A) 59.2 %; Platelet Count 165 X 10*3/uL (140-440); RDW 14.1 % (11.5-14.5)
[2020-09-16 16:15] LABS: T4, Free (Free Thyroxine) 1.1 ng/dL (0.80-1.80)
[2020-09-16 18:43] LABS: Erythrocyte Sedimentation Rate 37 mm/Hr (0-30)
[2020-09-17 00:18] LABS: African American GFR (CKD) 116.3 (60.0-200.0); Albumin 4.3 g/dL (3.80-4.90); Albumin/Globulin Ratio 1.65 (1.60-3.17); Anion Gap 9.1 mmol/L (4.00-12.00); BUN/Creat Ratio 24.29 Ratio (12.00-20.00); Calcium 9.4 mg/dL (8.7-10.3); Carbon Dioxide 24.9 mmol/L (21.6-31.8); Chol/HDL Ratio 2.98; Globulin 2.6 g/dL (1.6-3.3); LDL Cholesterol,Calculated 86.4 mg/dL (0.0-131.0); Non-African American GFR(CKD) 100.3 (60.0-200.0); Total Bilirubin 0.3 mg/dL (0.2-1.2); Total Protein 6.9 g/dL (6.2-8.2); VLDL Calculation 18.6 mg/dL (5.00-40.00)
[2020-09-17 15:26] LABS: C Reactive Protein 0.4 mg/dL (0.0-0.8)
== END | disposition home or self-care (01) ==
LOC: LABWHC1 07:43
PROVIDERS: ATTEND Obstetrics & Gynecology Obstetrics
DX: Z00.00 Encounter for general adult medical examination without abnormal findings (principal); E03.9 Hypothyroidism, unspecified; N20.0 Calculus of kidney; E78.5 Hyperlipidemia, unspecified; I10 Essential (primary) hypertension; E87.8 Other disorders of electrolyte and fluid balance, not elsewhere classified; E55.9 Vitamin D deficiency, unspecified; D64.9 Anemia, unspecified; R80.9 Proteinuria, unspecified
CPT/HCPCS: 36415; 80053; 80061; 82306; 82550; 82570; 84156; 84439; 84443; 85025; 85652; 86140

== ENCOUNTER → 2020-10-24 | Outpatient (CLI) | payer OTHER ==
--- NOTE | 2020-10-25 07:48 | MM ---
Reason for exam: screening (asymptomatic). Last mammogram was performed 1 year and 4 months ago. History: Patient is postmenopausal. MG pre op needle loc RT of the right breast, 2009. Physical Findings: A clinical breast exam by your physician is recommended on an annual basis and results should be correlated with mammographic findings. MG Screening Mammo w CAD Bilateral CC and MLO view(s) were taken. Prior study comparison: July 07, 2019, bilateral MG 3d screening mammo w/cad. January 14, 2018, mammogram, performed at [facility]. There are scattered fibroglandular densities. ASSESSMENT: Benign, BI-RAD 2 RECOMMENDATION: Routine screening mammogram of both breasts in 1 year.
== END ==
LOC: RADMAMWWP 09:13
PROVIDERS: ATTEND Obstetrics & Gynecology
DX: Z12.31 Encounter for screening mammogram for malignant neoplasm of breast (principal); Z78.0 Asymptomatic menopausal state
CPT/HCPCS: 77067

== ENCOUNTER → 2023-01-14 | Outpatient (CLI) | payer OTHER ==
--- NOTE | 2023-01-14 08:47 | US ---
EXAMINATION TYPE: US kidneys/renal and bladder DATE OF EXAM: 01/14/2023 COMPARISON: US 10/18/2019 CLINICAL INDICATION: Female, 52 years old with history of R10.9 ABD PAIN; Pain right side, hx stone. EXAM MEASUREMENTS: Right Kidney: 11.7 x 6.2 x 6.0 cm Left Kidney: 11.0 x 5.9 x 6.2 cm Right Kidney: No hydronephrosis or masses seen Left Kidney: Anechoic area seen upper pole medially: 4.1 x 4.0 x 4.0 cm. Bladder: Appears wnl Bilateral Jets seen: Yes Incidental finding: Spleen appears very heterogeneous with calcifications. IMPRESSION: 1. No evidence for obstructive uropathy. 2. Left renal cyst.
--- NOTE | 2023-01-14 08:48 | XR ---
EXAMINATION TYPE: XR KUB DATE OF EXAM: 01/14/2023 COMPARISON: KUB 10/04/2018, CT abdomen pelvis December 18, 2019, renal ultrasound 01/14/2023 HISTORY: Right flank pain TECHNIQUE: Supine KUB image of the abdomen is obtained with 2 radiographs FINDINGS: Small bowel demonstrates no evidence for dilatation or air fluid levels. Gas and fecal material is seen in non-distended colon. No convincing evidence for pneumoperitoneum. Right pelvic phlebolith corresponding to prior CT. No definitive ureteral or renal calculi. The lung bases are clear. The osseous structures are intact. IMPRESSION: 1. Overall nonobstructive bowel gas pattern. 2. No definitive ureteral or renal calculi.
[2023-01-14 08:52] LABS: Appearance,Urine Clear (Clear); Bilirubin,Urine Negative (Negative); Blood,Urine Negative (Negative); Color,Urine Light Yellow; Glucose,Urine (UA) Negative (Negative); Ketones,Urine Negative (Negative); Leukocyte Esterase,Urine Negative (Negative); Nitrite,Urine Negative (Negative); PH, Urine 6.5 (5.0-8.0); Protein,Urine Negative (Negative); Specific Gravity,Urine 1.011 (1.001-1.035); Urobilinogen,Urine <2.0 mg/dL (<2.0)
[2023-01-14 15:41] LABS: Basophils # (A) 0.01 X 10*3/uL (0.00-0.10); Basophils % (A) 0.2 %; Eosinophils # (A) 0.05 X 10*3/uL (0.04-0.35); Eosinophils % (A) 0.9 %; HCT 40.5 % (37.2-46.3); HGB 12.5 d/dL (12.0-15.0); Lymphocytes # (A) 2.05 X 10*3/uL (0.90-5.00); Lymphocytes % (A) 35.8 %; MCH 27.6 pg (27.0-32.0); MCHC 30.9 d/dL (32.0-37.0); MCV 89.4 FL (80.0-97.0); Mean Platelet Volume 12.7 FL (9.5-12.2); Monocytes % (A) 8.7 %; NRBC Per 100 WBC 0 X 10*3/uL (0.00-0.01); Neutrophils # (A) 3.11 X 10*3/uL (1.80-7.70); Neutrophils % (A) 54.2 %; Platelet Count 162 X 10*3/uL (140-440); RBC 4.53 X 10*6/uL (4.10-5.20); RDW 13.6 % (11.5-14.5); WBC 5.73 X 10*3/uL (4.50-10.00)
[2023-01-14 16:22] LABS: BUN/Creat Ratio 15.43 Ratio (12.00-20.00); Blood Urea Nitrogen 10.8 mg/dL (9.0-27.0); Calcium 9.3 mg/dL (8.7-10.3); Carbon Dioxide 26.6 mmol/L (21.6-31.8); Chloride 102 mmol/L (96-109); Glucose 102 mg/dL (70-110); Potassium 4.2 mmol/L (3.5-5.5); Sodium 140 mmol/L (135-145); Uric Acid 4.6 mg/dL (2.9-7.7)
[2023-01-14 16:56] LABS: Erythrocyte Sedimentation Rate 32 mm/Hr (0-30)
== END | disposition home or self-care (01) ==
LOC: RADUSWWP 07:44
PROVIDERS: ATTEND Internal Medicine
DX: N28.1 Cyst of kidney, acquired (principal); D64.9 Anemia, unspecified; N20.0 Calculus of kidney; E66.9 Obesity, unspecified
CPT/HCPCS: 74018; 76770; 80048; 81003; 84550; 85025; 85652; 87086

== ENCOUNTER → 2023-01-15 | Outpatient (CLI) | payer OTHER ==
--- NOTE | 2023-01-15 11:15 | XR ---
EXAMINATION TYPE: XR lumbosacral spine min 4V DATE OF EXAM: 01/15/2023 COMPARISON: None HISTORY: Flank pain TECHNIQUE: 5 view lumbar spine FINDINGS: Some mild posterior disc space narrowing of L5-S1 is present. Remaining disc heights are pr eserved. Vertebral body heights are preserved. Alignment is normal. No spondylolytic defects are evid ent. Foramen are patent. IMPRESSION: 1. Minimal posterior disc space narrowing L5-S1
--- NOTE | 2023-01-15 11:18 | XR ---
EXAMINATION TYPE: XR thoracic spine complete DATE OF EXAM: 01/15/2023 COMPARISON: None HISTORY: Flank pain TECHNIQUE: 2 view lumbar spine FINDINGS: There are 12 lumbar type vertebral bodies. T2-T12 pedicles are intact. T1 is out of the fie ld of view. Vertebral body heights are preserved. Disc heights appear preserved. Some spondylosis at the lower thoracic spine. IMPRESSION: 1. Mild degenerative changes. No acute osseous abnormality radiographically apparent
== END | disposition home or self-care (01) ==
LOC: RADXRMAIN 08:52
PROVIDERS: ATTEND Internal Medicine
DX: M51.26 Other intervertebral disc displacement, lumbar region (principal); M47.814 Spondylosis without myelopathy or radiculopathy, thoracic region
CPT/HCPCS: 72072; 72110

== ENCOUNTER → 2023-08-04 | Outpatient (CLI) | payer OTHER ==
--- NOTE | 2023-08-04 10:23 | MM ---
Reason for Exam: Additional evaluation requested from abnormal screening. Last screening mammogram was performed less than 1 month ago. Patient History: Menarche at age 10. First Full-Term at age 14. Postmenopausal. Patient has history of breast feeding. 2009, Core Biopsy on the Right side. Risk Values: Christiana 5 year model risk: 1.3%. NCI Lifetime model risk: 8.0%. Prior Study Comparison: 07/28/2016 Screening Mammogram, [facility]. 01/14/2018 Screening Mammogram, [facility]. 07/07/2019 Bilateral Screening Mammogram, [facility]. 10/24/2020 Bilateral Screening Mammogram, [facility]. 07/27/2022 Bilateral MG screening mammo w CAD, [facility]. 08/02/2023 Bilateral MG screening mammo w CAD, [facility]. Tissue Density: Right: There are scattered areas of fibroglandular density. Findings: Analyzed By CAD. No residual nodules are appreciated upon spot compression imaging. Overall Assessment: Negative, BI-RAD 1 Management: Screening Mammogram of both breasts in 1 year. . Results were given to the patient verbally at the time of exam. Patient should continue monthly self-breast exams. A clinical breast exam by your physician is recommended on an annual basis. This exam should not preclude additional follow-up of suspicious palpable abnormalities. Note on Christiana scores and lifetime risk: 1. A Christiana score greater than 3% is considered moderate risk. If this is the case, consider specialist referral to assess eligibility for a risk reducing agent. 2. If overall lifetime risk for the development of breast cancer is 20% or higher, the patient may qualify for future screening with alternating mammogram and breast MRI. Electronically signed and approved by: Beni Marshall M.D. Radiologis
== END | disposition home or self-care (01) ==
LOC: RADMAMWWP 09:57
PROVIDERS: ATTEND Internal Medicine
DX: R92.8 Other abnormal and inconclusive findings on diagnostic imaging of breast (principal); Z78.0 Asymptomatic menopausal state
CPT/HCPCS: 77061; 77065

== ENCOUNTER 2023-09-11 06:54 | Observation (INO) | payer OTHER ==
--- NOTE | 2023-09-11 07:29 | ED ---
General Adult HPI - General Chief complaint: Chest Pain Stated complaint: chest pain Time Seen by Provider: 09/11/23 07:00 Source: patient, RN notes reviewed, old records reviewed Mode of arrival: ambulatory Limitations: no limitations - History of Present Illness Initial comments: This is a 53-year-old female who presents to the emergency department co mplaining that she started having chest pain at 2:00 this morning. Patient states it radiated up into her jaw and her ear. Patient states that is subsided but she still has chest pain but that has improved. Patient denies shortness of breath. Patient has any nausea or diaphoretic episode. Patient states she did have tingling in her left arm. Patient states she has a history of high blood pressure she denies diabetes high cholesterol and smoking. Patient states her grandmother had heart disease. Patient denies any recent fever chills or cough or patient has abdominal pain patient is any vomiting or diarrhea - Related Data Home Medications Medication Instructions Recorded Confirmed Levothyroxine Sodium [Synthroid] 125 mcg PO DAILY 01/10/16 10/18/19 Cholecalciferol [Vitamin D3 (25 5,000 unit PO DAILY 10/04/18 10/18/19 Mcg = 1000 Iu)] Cyclobenzaprine [Flexeril] 10 mg PO BID PRN 10/18/19 10/18/19 DULoxetine HCL [Cymbalta] 20 mg PO DAILY 10/18/19 10/18/19 Losartan Potassium [Cozaar] 25 mg PO DAILY 10/18/19 10/18/19 Previous Rx's Medication Instructions Recorded traMADol HCL [Ultram] 50 mg PO Q6HR PRN 3 Days #12 tab 10/18/19 Allergies Allergy/AdvReac Type Severity Reaction Status Date / Time latex Allergy RED SKIN Verified 09/11/23 07:01 AND BLISTERS Penicillins Allergy Rash/Hives Verified 09/11/23 07:01 Sulfa (Sulfonamide Allergy Unknown Verified 09/11/23 07:01 Antibiotics) sulfur dioxide Allergy Unknown Verified 09/11/23 07:01 Review of Systems ROS Statement: Those systems with pertinent positive or pertinent negative responses have been documented in the HPI. ROS Other: All systems not noted in ROS Statement are negative. Past Medical History Past Medical History: Osteoarthritis (OA), Thyroid Disorder Additional Past Medical History / Comment(s): KIDNEY STONE, History of Any Multi-Drug Resistant Organisms: None Reported Past Surgical History: Breast Surgery, Section, Tubal Ligation Additional Past Surgical History / Comment(s): LUNG BIOPSY, Past Anesthesia/Blood Transfusion Reactions: No Reported Reaction Past Psychological History: No Psychological Hx Reported Smoking Status: Never smoker Past Alcohol Use History: None Reported Past Drug Use History: None Reported - Past Family History Mother Family Medical History: No Reported History General Exam - General Exam Comments Initial Comments: GENERAL: Patient is well-developed and well-nourished. Patient is nontoxic and well- hydrated and is in mild distress. ENT: Neck is soft and supple. No significant lymphadenopathy is noted. Oropharynx is clear. Moist mucous membranes. Neck has full range of motion without eliciting any pain. EYES: The sclera were anicteric and conjunctiva were pink and moist. Extraocular movements were intact and pupils were equal round and reactive to light. Eyelids were unremarkable. PULMONARY: Unlabored respirations. Good breath sounds bilaterally. No audible rales rhonchi or wheezing was noted. CARDIOVASCULAR: There is a regular rate and rhythm without any murmurs gallops or rubs. ABDOMEN: Soft and nontender with normal bowel sounds. SKIN: Skin is clear with no lesions or rashes and otherwise unremarkable. NEUROLOGIC: Patient is alert and oriented x3. Cranial nerves II through XII are grossly intact. Motor and sensory are also intact. Normal speech, volume and content. Symmetrical smile. MUSCULOSKELETAL: Normal extremities with adequate strength and full range of motion. No lower extremity swelling or edema. No calf tenderness. LYMPHATICS: No significant lymphadenopathy is noted PSYCHIATRIC: Normal psychiatric evaluation. Limitations: no limitations Course Vital Signs 09/11/23 09/11/23 09/11/23 06:59 07:18 07:51 Temperature 98 F Pulse Rate 79 69 60 Respiratory 18 20 18 Rate Blood Pressure 142/88 136/86 139/86 O2 Sat by Pulse 100 99 100 Oximetry Medical Decision Making - Medical Decision Making EKG is interpreted by myself but EKG shows a sinus rhythm at 73 bpm parables 137 QRS is 89 QT interval 388 QTc is 413. Patient's EKG shows no ST segment ovation or depression. Was pt. sent in by a medical professional or institution (, PA, WELDING MACHINE OPERATOR ELECTRON BEAM, urgent care, hospital, or custodial...) When possible be specific @ -No Did you speak to anyone other than the patient for history (EMS, parent, family, police, friend...)? What history was obtained from this source @ -No Did you review nursing and triage notes (agree or disagree)? Why? @ -I reviewed and agree with nursing and triage notes Were old charts reviewed (outside hosp., previous admission, EMS record, old EKG, old radiological studies, urgent care reports/EKG's, custodial records)? Report findings @ -I compared this chest x-ray with previous chest x-rays I see no acute difference. I also compared lab work from today's CBC and comp with old lab work I see no difference in the CBC or electrolytes. Differential Diagnosis (chest pain, altered mental status, abdominal pain women, abdominal pain men, vaginal bleeding, weakness, fever, dyspnea, syncope, headache, dizziness, GI bleed, back pain, seizure, CVA, palpatations, mental health, musculoskeletal)? @ -Not applicable EKG interpreted by me (3pts min.). @ -As above X-rays interpreted by me (1pt min.). @ -Chest x-ray shows no acute abnormality CT interpreted by me (1pt min.). @ -None done U/S interpreted by me (1pt. min.). @ -None done What testing was considered but not performed or refused? (CT, X-rays, U/S, labs)? Why? @ -None What meds were considered but not given or refused? Why? @ -None Did you discuss the management of the patient with other professionals (professionals i.e. , PA, WELDING MACHINE OPERATOR ELECTRON BEAM, lab, RT, psych nurse, manager social services, veterinary virus serum inspector, teacher, police liaison officer, shoe caser)? Give summary @ -I spoke with Dr. Desai he agreed to admit the patient admit the patient wrote admitting orders Was smoking cessation discussed for >3mins.? @ -No Was critical care preformed (if so, how long)? @ -No Were there social determinants of health that impacted care today? How? (Homelessness, low income, unemployed, alcoholism, drug addiction, transportation, low edu. Level, literacy, decrease access to med. care, senior care, rehab)? @ -No Was there de-escalation of care discussed even if they declined (Discuss DNR or withdrawal of care, Hospice)? DNR status @ -No What co-morbidities impacted this encounter? (DM, HTN, Smoking, COPD, CAD, Cancer, CVA, ARF, Chemo, Hep., AIDS, mental health diagnosis, sleep apnea, morbid obesity)? @ -None Was patient admitted / discharged? Hospital course, mention meds given and route, prescriptions, significant lab abnormalities, going to OR and other pertinent info. @ -Patient was given aspirin Nitropaste in emergency department. Patient's pain did slowly subside. Patient is going to be admitted to Dr. Desai with a consult to cardiology. I wrote admitting orders Undiagnosed new problem with uncertain prognosis? @ -No Drug Therapy requiring intensive monitoring for toxicity (Heparin, Nitro, Insulin, Cardizem)? @ -No Were any procedures done? @ -No Diagnosis/symptom? @ -Chest pain Acute, or Chronic, or Acute on Chronic? @ -acute Uncomplicated (without systemic symptoms) or Complicated (systemic symptoms)? @ -Complicated Side effects of treatment? @ -No Exacerbation, Progression, or Severe Exacerbation? @ -No Poses a threat to life or bodily function? How? (Chest pain, [place], [place], pneumonia, PE, COPD, DKA, ARF, appy, cholecystitis, CVA, Diverticulitis, Homicidal, Suicidal, threat to staff... and all critical care pts) @ -Yes this can lead to an [place] and endorgan dysfunction - Lab Data Result diagrams: 09/11/23 07:29 09/11/23 07:29 Lab Results 09/11/23 09/11/23 09/11/23 Range/Units 07:29 07:29 07:29 WBC 5.2 (3.8-10.6) k/uL RBC 4.51 (3.80-5.40) m/uL Hgb 12.5 (11.4-16.0) gm/dL Hct 39.6 (34.0-46.0) % MCV 87.7 (80.0-100.0) fL MCH 27.7 (25.0-35.0) pg MCHC 31.6 (31.0-37.0) g/dL RDW 14.3 (11.5-15.5) % Plt Count 163 (150-450) k/uL MPV 10.7 Neutrophils % 56 % Lymphocytes % 37 % Monocytes % 4 % Eosinophils % 1 % Basophils % 0 % Neutrophils # 2.9 (1.3-7.7) k/uL Lymphocytes # 1.9 (1.0-4.8) k/uL Monocytes # 0.2 (0-1.0) k/uL Eosinophils # 0.1 (0-0.7) k/uL Basophils # 0.0 (0-0.2) k/uL PT 10.1 (10.0-12.5) sec INR 0.9 (<1.2) APTT 24.7 (22.0-30.0) sec Sodium 140 (137-145) mmol/L Potassium 4.4 (3.5-5.1) mmol/L Chloride 110 H (98-107) mmol/L Carbon Dioxide 23 (22-30) mmol/L Anion Gap 7 mmol/L BUN 12 (7-17) mg/dL Creatinine 0.67 (0.52-1.04) mg/dL Est GFR (CKD-EPI)AfAm >90 (>60 ml/min/1.73 sqM) Est GFR (CKD-EPI)NonAf >90 (>60 ml/min/1.73 sqM) Glucose 114 H (74-99) mg/dL Calcium 9.3 (8.4-10.2) mg/dL Magnesium 2.1 (1.6-2.3) mg/dL Total Bilirubin 0.7 (0.2-1.3) mg/dL AST 31 (14-36) U/L ALT 26 (4-34) U/L Alkaline Phosphatase 109 (38-126) U/L Troponin I (0.000-0.034) ng/mL Total Protein 7.9 (6.3-8.2) g/dL Albumin 4.3 (3.5-5.0) g/dL 09/11/23 Range/Units 07:29 WBC (3.8-10.6) k/uL RBC (3.80-5.40) m/uL Hgb (11.4-16.0) gm/dL Hct (34.0-46.0) % MCV (80.0-100.0) fL MCH (25.0-35.0) pg MCHC (31.0-37.0) g/dL RDW (11.5-15.5) % Plt Count (150-450) k/uL MPV Neutrophils % % Lymphocytes % % Monocytes % % Eosinophils % % Basophils % % Neutrophils # (1.3-7.7) k/uL Lymphocytes # (1.0-4.8) k/uL Monocytes # (0-1.0) k/uL Eosinophils # (0-0.7) k/uL Basophils # (0-0.2) k/uL PT (10.0-12.5) sec INR (<1.2) APTT (22.0-30.0) sec Sodium (137-145) mmol/L Potassium (3.5-5.1) mmol/L Chloride (98-107) mmol/L Carbon Dioxide (22-30) mmol/L Anion Gap mmol/L BUN (7-17) mg/dL Creatinine (0.52-1.04) mg/dL Est GFR (CKD-EPI)AfAm (>60 ml/min/1.73 sqM) Est GFR (CKD-EPI)NonAf (>60 ml/min/1.73 sqM) Glucose (74-99) mg/dL Calcium (8.4-10.2) mg/dL Magnesium (1.6-2.3) mg/dL Total Bilirubin (0.2-1.3) mg/dL AST (14-36) U/L ALT (4-34) U/L Alkaline Phosphatase (38-126) U/L Troponin I 0.017 (0.000-0.034) ng/mL Total Protein (6.3-8.2) g/dL Albumin (3.5-5.0) g/dL Disposition Clinical Impression: Chest pain Disposition: ADMITTED IP TO THIS HOSP Referrals: Forrest Desai MD [Primary Care Provider] - 1-2 days Time of Disposition: 08:24
[2023-09-11 07:44] LABS: Basophils % (A) 0 %; Eosinophils # (A) 0.1 k/uL (0-0.7); Eosinophils % (A) 1 %; HCT 39.6 % (34.0-46.0); HGB 12.5 gm/dL (11.4-16.0); Lymphocytes # (A) 1.9 k/uL (1.0-4.8); Lymphocytes % (A) 37 %; MCH 27.7 pg (25.0-35.0); MCHC 31.6 g/dL (31.0-37.0); MCV 87.7 fL (80.0-100.0); Mean Platelet Volume 10.7; Monocytes # (A) 0.2 k/uL (0-1.0); Monocytes % (A) 4 %; Neutrophils # (A) 2.9 k/uL (1.3-7.7); Neutrophils % (A) 56 %; Platelet Count 163 k/uL (150-450); RBC 4.51 m/uL (3.80-5.40); RDW 14.3 % (11.5-15.5); WBC 5.2 k/uL (3.8-10.6)
[2023-09-11] MEDS: ASPIRIN 81 MG PO STA (07:45)
[2023-09-11] MEDS: NITROGLYCERIN OINT 1 INCH/GM PACKET TOPICAL STA (07:46)
[2023-09-11 07:56] LABS: ALT 26 U/L (4-34); African American GFR (CKD) >90 (>60 ml/min/1.73 sqM); Albumin 4.3 g/dL (3.5-5.0); Anion Gap 7 mmol/L; Blood Urea Nitrogen 12 mg/dL (7-17); Calcium 9.3 mg/dL (8.4-10.2); Carbon Dioxide 23 mmol/L (22-30); Chloride 110 mmol/L (98-107); Glucose 114 mg/dL (74-99); Non-African American GFR(CKD) >90 (>60 ml/min/1.73 sqM); Sodium 140 mmol/L (137-145); Total Bilirubin 0.7 mg/dL (0.2-1.3); Total Protein 7.9 g/dL (6.3-8.2)
[2023-09-11 07:58] LABS: INR 0.9 (<1.2); Partial Thromboplastin Time 24.7 sec (22.0-30.0); Prothrombin Time 10.1 sec (10.0-12.5)
[2023-09-11 08:05] LABS: AST 31 U/L (14-36); Alkaline Phosphatase 109 U/L (38-126); Magnesium 2.1 mg/dL (1.6-2.3); Potassium 4.4 mmol/L (3.5-5.1)
[2023-09-11] MEDS ORDERED: NITROGLYCERIN SL TABS 0.4 MG TAB SUBLINGUAL PRN (08:24)
--- NOTE | 2023-09-11 08:56 | XR ---
EXAMINATION TYPE: XR chest 2V DATE OF EXAM: 09/11/2023 8:06 AM CLINICAL INDICATION:Female, 53 years old with history of Chest Pain; [facility] COMPARISON: None TECHNIQUE: XR chest 2V. Frontal and lateral views of the chest.. FINDINGS: Lines/Tubes/Devices: EKG leads overlie the chest. No indwelling lines are seen. Heart/mediastinum: Heart appears mildly to moderately enlarged. Mediastinum appears normal. Pulmonary vascularity: Mild central congestive changes. Mildly increased interstitial markings could relate to edema and/or chronic changes. Lungs/Pleura: There is no evidence of pleural effusion, focal consolidation, or pneumothorax. Musculoskeletal: No acute osseous abnormality demonstrated in the limits of the exam. Mild degenerat epifanio changes. Other findings: None. IMPRESSION: Cardiomegaly with mild congestive changes. Correlate for mild CHF.
[2023-09-11] MEDS: ACETAMINOPHEN TAB 500 MG TAB PO STA (10:40)
--- NOTE | 2023-09-11 12:08 | P.CRDCN ---
History of Present Illness Consult date: 09/11/23 Consult reason: chest pain History of present illness: The patient is a 53-year-old female who presented to the emergency room with new onset of chest discomfort. She states she had an episode of chest pain this past Wednesday when ambulating around the grocery store. She states that was sharp in nature and caused her to have shortness of breath. She states this lasted for approximately 5 minutes. She did not have any more chest discomfort until overnight, when she had awoken with chest heaviness. Again she had difficulty breathing, however had radiation into her right neck. 2 weeks prior, the patient did have an episode of hemoptysis and a mild upper respiratory infection. Overall she is felt fatigued and has had poor appetite over the last 2 weeks. DIAGNOSTICS: EKG shows sinus mechanism without ST or T wave abnormalities Chest x-ray shows mild central congestive changes Lab data: WBC 5.2, hemoglobin 12.5, hematocrit 39.6, platelet 163, sodium 140, potassium 4.4, BUN 12, creatinine 0.67, magnesium 2.1, AST 31, ALT 26 REVIEW OF SYSTEMS: No fever or chills. No cough or expectoration. No diaphoresis. Patient denies dizziness, blurred vision, double vision. Patient denies any stomach discomfort. No nausea, vomiting. No hematochezia. No hematemesis. Denies any black stools or blood in his stools. Denies dysuria or hematuria. No muscle weakness or numbness. Positive for headache. Negative for chest pain or chest pressure. No difficulty breathing currently. PHYSICAL EXAMINATION: This is a 53-year-old -[place] Citizen female in no apparent distress at the time of my examination. HEENT: Head is atraumatic, normocephalic. Pupils are equal, round. There is no jugular venous distention. No carotid bruit is heard. CHEST EXAMINATION: Lungs are clear to auscultation. No chest wall tenderness is noted on palpation or with deep breathing. HEART EXAMINATION: Heart regular rate and rhythm. S1, S2 heard. No murmurs, g allops or rub. ABDOMEN: Soft, nontender. Bowel sounds are heard. No organomegaly noted. EXTREMITIES: 2+ peripheral pulses with no evidence of peripheral edema and no calf tenderness noted. NEUROLOGIC EXAMINATION: Patient is awake, alert and oriented x3. FINAL ASSESSMENT AND PLAN: Chest discomfort Hypertension History of dyslipidemia Recent upper respiratory infection PLAN: Continue to trend troponins Check lipid profile and hemoglobin A1c Increase losartan to 50 mg Echocardiogram and Doppler study to be done Further recommendations to be based upon clinical course I am dictating on behalf of Dr Elias Stinson's history/physical and assessment/plan. Past Medical History Past Medical History: Osteoarthritis (OA), Thyroid Disorder Additional Past Medical History / Comment(s): KIDNEY STONE, History of Any Multi-Drug Resistant Organisms: None Reported Past Surgical History: Breast Surgery, Section, Tubal Ligation Additional Past Surgical History / Comment(s): LUNG BIOPSY, Past Anesthesia/Blood Transfusion Reactions: No Reported Reaction Past Psychological History: No Psychological Hx Reported Smoking Status: Never smoker Past Alcohol Use History: None Reported Past Drug Use History: None Reported - Past Family History Mother Family Medical History: No Reported History Medications and Allergies Home Medications Medication Instructions Recorded Confirmed Type Levothyroxine Sodium [Synthroid] 125 mcg PO DAILY 01/10/16 10/18/19 History Cholecalciferol [Vitamin D3 (25 5,000 unit PO DAILY 10/04/18 10/18/19 History Mcg = 1000 Iu)] Cyclobenzaprine [Flexeril] 10 mg PO BID PRN 10/18/19 10/18/19 History DULoxetine HCL [Cymbalta] 20 mg PO DAILY 10/18/19 10/18/19 History Losartan Potassium [Cozaar] 25 mg PO DAILY 10/18/19 10/18/19 History traMADol HCL [Ultram] 50 mg PO Q6HR PRN 3 Days #12 tab 10/18/19 Rx Allergies Allergy/AdvReac Type Severity Reaction Status Date / Time latex Allergy RED SKIN Verified 09/11/23 07:01 AND BLISTERS Penicillins Allergy Rash/Hives Verified 09/11/23 07:01 Sulfa (Sulfonamide Allergy Unknown Verified 09/11/23 07:01 Antibiotics) sulfur dioxide Allergy Unknown Verified 09/11/23 07:01 Physical Exam Vitals: Vital Signs Temp Pulse Resp BP Pulse Ox 09/11/23 10:00 66 18 144/92 100 09/11/23 08:38 60 16 130/85 100 09/11/23 07:51 60 18 139/86 100 09/11/23 07:18 69 20 136/86 99 09/11/23 06:59 98 F 79 18 142/88 100 Intake and Output 09/10/23 09/11/23 09/11/23 22:59 06:59 14:59 Other: Weight 79.379 kg Results 09/11/23 07:29 09/11/23 07:29 Cardiac Enzymes 09/11/23 09/11/23 Range/Units 07:29 07:29 AST 31 (14-36) U/L Troponin I 0.017 (0.000-0.034) ng/mL Coagulation 09/11/23 Range/Units 07:29 PT 10.1 (10.0-12.5) sec APTT 24.7 (22.0-30.0) sec CBC 09/11/23 Range/Units 07:29 WBC 5.2 (3.8-10.6) k/uL RBC 4.51 (3.80-5.40) m/uL Hgb 12.5 (11.4-16.0) gm/dL Hct 39.6 (34.0-46.0) % Plt Count 163 (150-450) k/uL Comprehensive Metabolic Panel 09/11/23 Range/Units 07:29 Sodium 140 (137-145) mmol/L Potassium 4.4 (3.5-5.1) mmol/L Chloride 110 H (98-107) mmol/L Carbon Dioxide 23 (22-30) mmol/L BUN 12 (7-17) mg/dL Creatinine 0.67 (0.52-1.04) mg/dL Glucose 114 H (74-99) mg/dL Calcium 9.3 (8.4-10.2) mg/dL AST 31 (14-36) U/L ALT 26 (4-34) U/L Alkaline Phosphatase 109 (38-126) U/L Total Protein 7.9 (6.3-8.2) g/dL Albumin 4.3 (3.5-5.0) g/dL Current Medications Generic Name Dose Route Start Last Admin Trade Name Freq PRN Reason Stop Dose Admin Aspirin 325 mg 09/12/23 09:00 Aspirin 325 Mg Tab PO DAILY [facility] Atorvastatin Calcium 20 mg 09/12/23 09:00 Atorvastatin 20 Mg Tab PO DAILY [facility] Losartan Potassium 50 mg 09/11/23 10:45 Losartan 50 Mg Tab PO DAILY [facility] Nitroglycerin 0.4 mg 09/11/23 08:24 Nitroglycerin Sl Tabs 0.4 Mg Tab SUBLINGUAL Q5M PRN Chest Pain Nitroglycerin 1 inch 09/11/23 12:00 Nitroglycerin Oint 1 Inch/Gm Packet TOPICAL Q6HR JARAD Intake and Output 09/10/23 09/11/23 09/11/23 22:59 06:59 14:59 Other: Weight 79.379 kg 09/11/23 07:29 09/11/23 07:29
[2023-09-11] MEDS: NITROGLYCERIN OINT 1 INCH/GM PACKET TOPICAL SCH (12:12)
[2023-09-11] MEDS: LOSARTAN 50 MG TAB PO SCH ×2 (12:14→21:09)
--- NOTE | 2023-09-11 13:57 | CA ---
Transthoracic Echo Report Name: Dorothy Vargas Age: 53 Gender: F : 1970 Exam Date: 09/11/2023 12:25 Exam Location: [facility] [facility] Ht (in): 63 Wt (lb): 175 Ordering Physician: Kristi Cabrera Attending/Referring Phys: [id number], Rick Professional Nursing Assistant Bharati Loyola, KIMBERLY Procedure CPT: Indications: chest pain, shortness of breath Cardiac Hx: Technical Quality: Fair Contrast 1: Total Dose (mL): Contrast 2: Total Dose (mL): MEASUREMENTS (Male / Female) Normal Values 2D ECHO LV Diastolic Diameter PLAX 4.1 cm 4.2 - 5.9 / 3.9 - 5.3 cm LV Systolic Diameter PLAX 2.5 cm IVS Diastolic Thickness 1.4 cm 0.6 - 1.0 / 0.6 - 0.9 cm LVPW Diastolic Thickness 1.2 cm 0.6 - 1.0 / 0.6 - 0.9 cm LV Relative Wall Thickness 0.6 RV Internal Dim ED PLAX 2.8 cm LA Volume 45.7 cm??? 18 - 58 / 22 - 52 cm??? LA Volume Index 24.0 cm???/m??? 16 - 28 cm???/m??? M-MODE Aortic Root Diameter MM 2.7 cm LA Systolic Diameter MM 3.6 cm LA Ao Ratio MM 1.4 AV Cusp Separation MM 1.8 cm DOPPLER AV Peak Velocity 132.2 cm/s AV Peak Gradient 7.0 mmHg AV Mean Velocity 88.5 cm/s AV Mean Gradient 3.6 mmHg AV Velocity Time Integral 26.3 cm LVOT Peak Velocity 98.0 cm/s LVOT Peak Gradient 3.8 mmHg LVOT Velocity Time Integral 20.5 cm MV Area PHT 2.6 cm??? Mitral E Point Velocity 89.2 cm/s Mitral A Point Velocity 54.3 cm/s Mitral E to A Ratio 1.6 MV Deceleration Time 293.4 ms MV E' Velocity 9.4 cm/s Mitral E to MV E' Ratio 9.5 TR Peak Velocity 212.4 cm/s TR Peak Gradient 18.0 mmHg Right Ventricular Systolic Press 22.5 mmHg FINDINGS Left Ventricle Moderately increased left ventricular wall thickness. Left ventricular cavity size normal. Normal left ventricular systolic function with no obvious regional wall motion abnormalities. Left ventricular ejection fraction is estimated at 55-60 %. Grade 1 diastolic dysfunction. Right Ventricle Normal right ventricular size and function. Right ventricular systolic pressure within normal limits. Right Atrium Mild right atrial dilatation. Left Atrium Normal left atrial size. Mitral Valve Structurally normal mitral valve. No mitral stenosis. Trace to mild mitral regurgitation. Aortic Valve Trileaflet aortic valve. No aortic valve stenosis or regurgitation. Tricuspid Valve Structurally normal tricuspid valve. Mild tricuspid regurgitation. Pulmonic Valve Structurally normal pulmonic valve. Pericardium No pericardial effusion. Aorta Normal size aortic root and proximal ascending aorta. CONCLUSIONS LVH with preserved systolic function Previewed by: Dr. Elias Stinson MD (Electronically Signed) Final Date: 11 September 2023 13:57
[2023-09-11] MEDS ORDERED: LACTULOSE 20 GM/30 ML CUP PO PRN (16:56)
--- NOTE | 2023-09-11 16:58 | P.HPIM ---
History of Present Illness H&P Date: 09/11/23 Chief Complaint: Chest pain 53-year-old female, history of hypertension, hypothyroidism, osteoarthritis, who presents to the emergency department complaining that she started having chest pain at 2:00 this morning. Patient states it radiated up into her jaw and her ear. Patient states that is subsided but she still has chest pain but that has improved. Patient denies shortness of breath. Patient has any nausea or diaphoretic episode. Patient states she did have tingling in her left arm. Patient states she has a history of high blood pressure she denies diabetes high cholesterol and smoking. Patient states her grandmother had heart disease. Patient denies any recent fever chills or cough or patient has abdominal pain patient is any vomiting or diarrhea EKG completed in ED reveals no acute ST or T wave changes Chest x-ray is negative for any acute intrapulmonary process Lab review shows WBC of 5.2, hemoglobin of 12.5 and platelet count of 163, sodium 140, potassium 4.4, BUNs/creatinine of 12/0.67 and blood glucose of 114, troponin at 0.017 Review of Systems REVIEW OF SYSTEMS: CONSTITUTIONAL: No fever, no malaise, no fatigue. HEENT: No recent visual problems or hearing problems. Denied any sore throat. CARDIOVASCULAR: No chest pain, orthopnea, PND, no palpitations, no syncope. PULMONARY: No shortness of breath, no cough, no hemoptysis. GASTROINTESTINAL: No diarrhea, no nausea, no vomiting, no abdominal pain. NEUROLOGICAL: No headaches, no weakness, no numbness. HEMATOLOGICAL: Denies any bleeding or petechiae. GENITOURINARY: Denies any burning micturition, frequency, or urgency. MUSCULOSKELETAL/RHEUMATOLOGICAL: Denies any joint pain, swelling, or any muscle pain. ENDOCRINE: Denies any polyuria or polydipsia. The rest of the 14-point review of systems is negative. Past Medical History Past Medical History: Osteoarthritis (OA), Thyroid Disorder Additional Past Medical History / Comment(s): KIDNEY STONE, History of Any Multi-Drug Resistant Organisms: None Reported Past Surgical History: Breast Surgery, Section, Tubal Ligation Additional Past Surgical History / Comment(s): LUNG BIOPSY, Past Anesthesia/Blood Transfusion Reactions: No Reported Reaction Past Psychological History: No Psychological Hx Reported Smoking Status: Never smoker Past Alcohol Use History: None Reported Past Drug Use History: None Reported - Past Family History Mother Family Medical History: No Reported History Medications and Allergies Home Medications Medication Instructions Recorded Confirmed Type Levothyroxine Sodium [Synthroid] 125 mcg PO DAILY 01/10/16 09/11/23 History Atorvastatin [Lipitor] 20 mg PO HS 09/11/23 09/11/23 History Famotidine [Pepcid AC] 10 mg PO DAILY 09/11/23 09/11/23 History Lactulose 10 gm PO DAILY PRN 09/11/23 09/11/23 History Losartan Potassium 100 mg PO DAILY 09/11/23 09/11/23 History Progesterone, Micronized 200 mg PO HS 09/11/23 09/11/23 History [Progesterone] estradioL [Annita 0.0375 MG/24 HR] 1 patch TRANSDERM WESA 09/11/23 09/11/23 History Allergies Allergy/AdvReac Type Severity Reaction Status Date / Time latex Allergy RED SKIN Verified 09/11/23 13:14 AND BLISTERS Penicillins Allergy Rash/Hives Verified 09/11/23 13:14 Sulfa (Sulfonamide Allergy Unknown Verified 09/11/23 13:14 Antibiotics) sulfur dioxide Allergy Unknown Verified 09/11/23 13:14 Physical Exam Vitals: Vital Signs Temp Pulse Resp BP Pulse Ox 09/11/23 10:00 66 18 144/92 100 09/11/23 08:38 60 16 130/85 100 09/11/23 07:51 60 18 139/86 100 09/11/23 07:18 69 20 136/86 99 09/11/23 06:59 98 F 79 18 142/88 100 Intake and Output 09/10/23 09/11/23 09/11/23 22:59 06:59 14:59 Other: Weight 79.379 kg 53-year-old -[place] female in no apparent distress at the time of my examination. HEENT: Head is atraumatic, normocephalic. Pupils are equal, round. There is no jugular venous distention. No carotid bruit is heard. CHEST EXAMINATION: Lungs are clear to auscultation. No chest wall tenderness is noted on palpation or with deep breathing. HEART EXAMINATION: Heart regular rate and rhythm. S1, S2 heard. No murmurs, gallops or rub. ABDOMEN: Soft, nontender. Bowel sounds are heard. No organomegaly noted. EXTREMITIES: 2+ peripheral pulses with no evidence of peripheral edema and no calf tenderness noted. NEUROLOGIC EXAMINATION: Patient is awake, alert and oriented x3. Results CBC & Chem 7: 09/11/23 07:29 09/11/23 07:29 Labs: Abnormal Lab Results - Last 24 Hours (Table) 09/11/23 Range/Units 07:29 Chloride 110 H (98-107) mmol/L Glucose 114 H (74-99) mg/dL Assessment and Plan Assessment: 1. Chest pain; rule out ACS --Patient is being admitted to telemetry; will monitor EKG and trend troponin -- Recommend 2D echo Cardiology is consulted 2. Uncontrolled hypertension; patient takes losartan 100 mg daily; will monitor blood pressure closely and make further adjustments as needed 3. Hypothyroidism; levothyroxine 125 mcg daily 4. Gastroesophageal reflux disease; Pepcid 10 mg daily DVT prophylaxis; SCDs CODE STATUS full code;
[2023-09-11] MEDS: ESTRADIOL TRANSDERM SCH ×2 (17:05→21:09)
[2023-09-11] MEDS: NON FORMULARY DRUG (Progesterone, Micronized [Progesterone] 200 MG Capsule) PO SCH ×2 (20:18→21:09)
[2023-09-11] MEDS: ACETAMINOPHEN TAB 325 MG TAB PO PRN (20:28)
[2023-09-11] MEDS: ATORVASTATIN 20 MG TAB PO SCH (21:09)
[2023-09-12 08:02] LABS: Basophils % (A) 0 %; Eosinophils % (A) 0 %; Lymphocytes # (A) 1.4 k/uL (1.0-4.8); Lymphocytes % (A) 29 %; MCH 27.3 pg (25.0-35.0); MCHC 30.8 g/dL (31.0-37.0); MCV 88.6 fL (80.0-100.0); Mean Platelet Volume 10.1; Monocytes # (A) 0.2 k/uL (0-1.0); Monocytes % (A) 5 %; Neutrophils # (A) 3.1 k/uL (1.3-7.7); Neutrophils % (A) 64 %; Platelet Count 164 k/uL (150-450); RDW 14.3 % (11.5-15.5); WBC 4.8 k/uL (3.8-10.6)
[2023-09-12 08:27] LABS: Potassium 4.3 mmol/L (3.5-5.1)
[2023-09-12 08:28] LABS: African American GFR (CKD) >90 (>60 ml/min/1.73 sqM); Anion Gap 8 mmol/L; Blood Urea Nitrogen 12 mg/dL (7-17); Calcium 8.8 mg/dL (8.4-10.2); Carbon Dioxide 23 mmol/L (22-30); Chloride 108 mmol/L (98-107); Glucose 110 mg/dL (74-99); Non-African American GFR(CKD) >90 (>60 ml/min/1.73 sqM); Sodium 139 mmol/L (137-145)
[2023-09-12 09:23] VITALS: BP 110/72; PULSE 66; RESP 16; TEMP 98.5
[2023-09-12] MEDS: ASPIRIN 325 MG TAB PO SCH (09:40)
[2023-09-12] MEDS: FAMOTIDINE 20 MG TAB PO SCH (09:40)
--- NOTE | 2023-09-12 10:24 | P.PN ---
Subjective Progress Note Date: 09/12/23 Consult reason: chest pain History of present illness: The patient is a 53-year-old female who presented to the emergency room with new onset of chest discomfort. She states she had an episode of chest pain this past Wednesday when ambulating around the grocery store. She states that was sharp in nature and caused her to have shortness of breath. She states this lasted for approximately 5 minutes. She did not have any more chest discomfort until overnight, when she had awoken with chest heaviness. Again she had difficulty breathing, however had radiation into her right neck. 2 weeks prior, the patient did have an episode of hemoptysis and a mild upper respiratory infection. Overall she is felt fatigued and has had poor appetite over the last 2 weeks. DIAGNOSTICS: EKG shows sinus mechanism without ST or T wave abnormalities Chest x-ray shows mild central congestive changes Lab data: WBC 5.2, hemoglobin 12.5, hematocrit 39.6, platelet 163, sodium 140, potassium 4.4, BUN 12, creatinine 0.67, magnesium 2.1, AST 31, ALT 26 09/11 On Nitropaste was removed yesterday. She denies having any chest pain. She states her headache comes and goes. Echocardiogram reveals EF of 55 to 60%. A1c 5.9. Lipid panel is pending. Losartan was increased yesterday to 50 mg. All 3 troponins have been negative. PHYSICAL EXAMINATION: This is a 53-year-old -[place] female in no apparent distress at the time of my examination. HEENT: Head is atraumatic, normocephalic. Pupils are equal, round. There is no jugular venous distention. No carotid bruit is heard. CHEST EXAMINATION: Lungs are clear to auscultation. No chest wall tenderness is noted on palpation or with deep breathing. HEART EXAMINATION: Heart regular rate and rhythm. S1, S2 heard. No murmurs, gallops or rub. ABDOMEN: Soft, nontender. Bowel sounds are heard. No organomegaly noted. EXTREMITIES: 2+ peripheral pulses with no evidence of peripheral edema and no calf tenderness noted. NEUROLOGIC EXAMINATION: Patient is awake, alert and oriented x3. FINAL ASSESSMENT AND PLAN: Chest discomfort Hypertension History of dyslipidemia Recent upper respiratory infection PLAN: Check lipid profile Continue losartan to 50 mg Patient to ambulate in hallway and if does well with no chest pain or shortness of breath, she may be discharged home. Follow-up with Dr. Stinson in 2 weeks. Nurse practitioner note has been reviewed, I agree with documented findings and plan of care. Patient was seen and examined. Objective - Vital Signs Vital signs: Vital Signs Temp 98.5 F 09/12/23 07:40 Pulse 66 09/12/23 07:40 Resp 16 09/12/23 08:00 BP 110/72 09/12/23 07:40 Pulse Ox 96 09/12/23 07:40 FiO2 Intake & Output 09/11/23 09/12/23 09/12/23 18:59 06:59 18:59 Weight 79.379 kg Other: Voiding Method Toilet Toilet # Voids 1 2 - Labs CBC & Chem 7: 09/12/23 07:25 09/12/23 07:25 Labs: Abnormal Lab Results - Last 24 Hours (Table) 09/12/23 09/12/23 Range/Units 07:25 07:25 MCHC 30.8 L (31.0-37.0) g/dL Chloride 108 H (98-107) mmol/L Glucose 110 H (74-99) mg/dL
[2023-09-12] MEDS: LEVOTHYROXINE 125 MCG TAB PO SCH (10:27)
[2023-09-12 12:54] LABS: Chol/HDL Ratio 2.56 Ratio; LDL Cholesterol,Calculated 69.2 mg/dL (0.0-131.0); VLDL Calculation 13.04 mg/dL (5.00-40.00)
== END 2023-09-12 12:41 | disposition home or self-care (01) ==
LOC: EC 06:54 → 3SCARD 08:24 → 4SSUR 13:44
PROVIDERS: ADMIT Hospitalist; ATTEND Hospitalist
DX: R07.89 Other chest pain (principal); R61 Generalized hyperhidrosis; R20.2 Paresthesia of skin; R06.02 Shortness of breath; R11.0 Nausea; R68.84 Jaw pain; R63.0 Anorexia; M54.2 Cervicalgia; R51.9 Headache, unspecified; E78.5 Hyperlipidemia, unspecified; E03.9 Hypothyroidism, unspecified; M19.90 Unspecified osteoarthritis, unspecified site; K21.9 Gastro-esophageal reflux disease without esophagitis; Z79.890 Hormone replacement therapy; Z79.899 Other long term (current) drug therapy; Z88.0 Allergy status to penicillin; Z88.2 Allergy status to sulfonamides; Z91.040 Latex allergy status; Z91.048 Other nonmedicinal substance allergy status; Z87.09 Personal history of other diseases of the respiratory system; Z82.49 Family history of ischemic heart disease and other diseases of the circulatory system
CPT/HCPCS: 99285; 36415; 93005; 93306; 80061; 80053; 80048; 83735; 84484; 85025 ×2; 85610; 85730; 83036; 71046; G0378 ×3